=== PATIENT | female | born 1940 | race Caucasian/White ===

== ENCOUNTER 2017-02-17 16:30 | Inpatient (IN) | payer MEDICARE, OTHER ==
[2017-02-17] VITALS: BP 159/89
[~2017-02-17] VITALS: Ht 160 cm; Wt 59.1 kg
[2017-02-17 17:26] LABS: INR 0.91 (0.85-1.17); PROTIME 11.9 SECONDS (11.6-15.0)
[2017-02-17 17:28] LABS: ALBUMIN 3.8 g/dL (3.4-5.0); ALKALINE PHOSPHATASE 52 U/L (46-116); ALT (SGPT) 32 U/L (10-68); BILIRUBIN - TOTAL 0.53 mg/dL (0.2-1.3); CALC OSMOLALITY 277 mosm/kg (275-300); CALCIUM 10.3 mg/dL (8.5-10.1); CHLORIDE - SERUM 101 mmol/L (98-107); CREATININE - SERUM 0.7 mg/dL (0.6-1.3); D-DIMER-QUANTITATIVE 0.46 ug/mLFEU (0.20-0.54); GLUCOSE 100 mg/dL (74-106); POTASSIUM - SERUM 3.5 mmol/L (3.5-5.1); SODIUM 139 mmol/L (136-145); UREA NITROGEN 13 mg/dL (7-18); eGFR NON AFRICAN AMERICAN 86 mL/min (90-120)
[2017-02-17 17:34] LABS: BASOPHILS 0.5 % (0-2); EOSINOPHILS 3.7 % (0-7); HEMATOCRIT 43.2 % (36.0-48.0); HEMOGLOBIN 14.8 g/dL (12-16); IMMATURE GRANULOCYTES 0.2 % (0-5); LYMPHOCYTES 32.8 % (15-50); MCH 35.5 pg (26.0-34.0); MCHC 34.3 g/dL (31.0-37.0); MCV 103.6 fL (80.0-100.0); MEAN PLATELET VOLUME 10.1 fL (7.4-10.4); MONOCYTES 8.7 % (2-11); NEUTROPHILS 54.1 % (40-80); PLATELET COUNT 333 10x3/uL (130-400); RBC 4.17 10x6/uL (4.00-5.40); RDW 11.7 % (11.5-14.5); WBC 6.2 10x3/uL (4.8-10.8)
[2017-02-17 17:44] LABS: CKMB 0.7 U/L (0.0-3.6); CREATINE KINASE 51 UL (21-215)
[2017-02-17 17:48] LABS: TROPONIN-I < 0.017 ng/mL (0.000-0.060)
[2017-02-17 18:50] LABS: APPEARANCE CLEAR (CLEAR); COLOR YELLOW (YELLOW); NITRITE NEGATIVE (NEGATIVE); PROTEIN NEGATIVE (NEGATIVE)
[2017-02-17 18:51] LABS: BILIRUBIN NEGATIVE (NEGATIVE); GLUCOSE NEGATIVE (NEGATIVE); KETONE NEGATIVE (NEGATIVE); UROBILINOGEN NORMAL (NORMAL)
[2017-02-17 23:00] VITALS: BP 164/84; BMI 23.0
[2017-02-17 23:38] LABS: CKMB 0.6 U/L (0.0-3.6); CREATINE KINASE 63 UL (21-215)
[2017-02-17 23:41] LABS: TROPONIN-I < 0.017 ng/mL (0.000-0.060)
--- NOTE | 2017-02-18 | NUR ---
ADMIT TO ROOM 2119 FROM ER. ALERT/ORIENTED. ACCOMPANIED BY SPOUSE. AMBULATORY. PIV 20 IN LEFT A/C. NS @ 100ML/HR CURRENTLY INFUSING. ADMISSION HISTORY AND ASSESSMENT COMPLETED. NEED FURTHER EVAL OF HOME MEDS TOOK ALL MEDS HOME AND ER DID NOT MAKE A LIST OF THE MEDS. PT REPEATED THOSE THAT SHE COULD REMEMBER. WILL CLARIFY MEDS IN AM. TELEMETRY STARTED SHOWING SR 68. CALL LIGHIT IN REACH. PLAN OF CARE AND EXPECTED INTERVENTIONS EXPLAINED. WILL MONITOR.
[2017-02-18] MEDS ORDERED: VALIUM5 MG PO (03:26)
[2017-02-18] MEDS ORDERED: BETAPACE 80 MG80 MG PO (03:27)
[2017-02-18] MEDS ORDERED: CELEXA20 MG PO (03:30)
[2017-02-18] MEDS ORDERED: VALTREX500 MG PO (03:31)
[2017-02-18] MEDS ORDERED: BELSOMRA20 MG PO (03:32)
[2017-02-18] MEDS ORDERED: DIOVAN40 MG PO (03:38)
[2017-02-18] MEDS ORDERED: MAXALT MLT10 MG/TAB PO (03:58)
[2017-02-18] MEDS ORDERED: DESERYL100 MG PO (03:59)
[2017-02-18] MEDS ORDERED: DETROL LA4 MG PO (04:00)
[2017-02-18 05:15] LABS: BASOPHILS 0.5 % (0-2); EOSINOPHILS 5.1 % (0-7); HEMOGLOBIN 14.4 g/dL (12-16); IMMATURE GRANULOCYTES 0.2 % (0-5); LYMPHOCYTES 32.2 % (15-50); MCH 35.6 pg (26.0-34.0); MCHC 34.3 g/dL (31.0-37.0); MONOCYTES 9.5 % (2-11); NEUTROPHILS 52.5 % (40-80); PLATELET COUNT 297 10x3/uL (130-400); RBC 4.04 10x6/uL (4.00-5.40); RDW 11.9 % (11.5-14.5); WBC 5.5 10x3/uL (4.8-10.8)
--- NOTE | 2017-02-18 05:15 | NUR ---
CALLED TO PATIENT'S ROOM WHERE SHE WAS EXPERIENCING ABDOMINAL PAIN / THAT WAS "HEADING" UP TOWARDS HER CHEST. HER ABDOMINAL SOUNDS ARE HIGH PITCHED AND VERY LOUD AND RUMBLING.SHE IS CLUTCHING HER ABDOMEN AND SAYING MAYBE IT WOULD HELP IF SHE WENT TO THE BATHROOM. ASSISTED PT TO TOILET WHERE SHE VOIDED, BUT DID NOT HAVE ANY BM. SMALL AMOUNT FLATUS NOTED. ASSISTED BACK TO BED AND PT IN TEARS ABOUT HOW MUCH SHE WAS HURTING AND NAUSEATED.
[2017-02-18 05:48] LABS: CALC OSMOLALITY 278 mosm/kg (275-300); CALCIUM 8.9 mg/dL (8.5-10.1); CARBON DIOXIDE 29.6 mmol/L (21.0-32.0); CHLORIDE - SERUM 103 mmol/L (98-107); CKMB 0.4 U/L (0.0-3.6); CREATINE KINASE 38 UL (21-215); CREATININE - SERUM 0.6 mg/dL (0.6-1.3); GLUCOSE 96 mg/dL (74-106); POTASSIUM - SERUM 3.4 mmol/L (3.5-5.1); SODIUM 140 mmol/L (136-145); TROPONIN-I < 0.017 ng/mL (0.000-0.060); UREA NITROGEN 13 mg/dL (7-18); eGFR NON AFRICAN AMERICAN > 90 mL/min (90-120)
--- NOTE | 2017-02-18 05:48 | NUR ---
PAGE TO DANIELLA HERNANDEZ TO REPORT PAIN/NAUSEA.
[2017-02-18 06:16] VITALS: BP 159/80
--- NOTE | 2017-02-18 06:38 | NUR ---
0600 RETURN CALL FROM DANIELLA. REVIEWED PT'S CURRENT ISSUES OF PAIN/NAUSEA AND AVAILABLE LAB RESULTS. NEW ORDERS RECIEVED. PENDING CT'S OF ABDOMEN/PELVIS/CHEST DEPENDING ON PATIENT'S BUN/CREATININE LEVEL. MEDICATED PATIENT WITH ZOFRAN IVP AND MORPHINE 4MG SIVP. IVF NS @ 50 INFUSING TO LEFT A/C. PT INSTRUCTION ON NEW ORDERS FOR CT SCANS. AFTER A FEW MINUTES, PT WAS ABLE TO FEEL SOME RELIEF FROM THE MORPHINE. STILL FEELING NAUSEATTED. WILL MONITOR. REPORT TO ONCOMING RN.
[2017-02-18 07:41] VITALS: BP 130/66
--- NOTE | 2017-02-18 09:28 | NUR ---
TELEMETRY SR. LEAVING FOR X-RAY BY W/C FOR CT SCAN.
--- NOTE | 2017-02-18 09:58 | NUR ---
BACK FROM CT. DIET RESUMED.
[2017-02-18 10:38] LABS: CKMB 0.5 U/L (0.0-3.6); CREATINE KINASE 46 UL (21-215); TROPONIN-I < 0.017 ng/mL (0.000-0.060)
[2017-02-18 11:19] VITALS: BP 162/81
--- NOTE | 2017-02-18 11:58 | NUR ---
ACCREDITED LEGAL SECRETARY NOTIFIED OF C/O BARTON. WILL MONITOR.
[2017-02-18 12:23] VITALS: Ht 160 cm; Wt 59.1 kg
[2017-02-18 15:45] VITALS: BP 143/70
--- NOTE | 2017-02-18 19:42 | NUR ---
PT AWAKE, ALERT, ORIENTED, LYING IN BED, ASKING FOR SALTINE CRACKERS FOR NAUSEA. PT STATES SHE IS UNABLE TO EAT MUCH AT THIS TIME. PT DENIES ANY OTHER NEEDS. WILL CONTINUE TO MONITOR PT CLOSELY.
[2017-02-18 20:23] VITALS: BP 166/67
--- NOTE | 2017-02-18 20:23 | NUR ---
PT STATES HER NAUSEA IS BETTER AFTER EATING SALTINES AND DRINKING A [place]. PT DENIES ANY NEEDS. WILL CONTINUE TO MONITOR CLOSELY.
[2017-02-19 01:50] VITALS: BP 141/74
--- NOTE | 2017-02-19 02:15 | NUR ---
RECEIVED PT FROM ROOM 2119 VIA WC, PT TO ROOM 1219, PT TO BR, GAIT STEADY, VOIDED BY SELF WITH NO DIFFICULTY, PT TO BED, PT DENIES PAIN, PT REQUESTED AND SERVED FRESH H20, DENIES FURTHER NEEDS, PT ORIENTED TO ROOM, BED IN LOW POSITON, SIDE RAILS X 2, CALL LIGHT IN REACH
--- NOTE | 2017-02-19 02:31 | NUR ---
PT TRANSFERRED TO 1219 R/T THE UNIT NEEDING THE ROOM FOR ANOTHER PT. PRN MORPHINE GIVEN R/T INCREASED MIDSTERNAL CHEST PAIN AND PRN ZOFRAN GIVEN PER PT REQUEST. ALL OF PTS PERSONAL BELONGINGS COLLECTED AND TRANSFERRED WITH PT VIA WHEELCHAIR.
[2017-02-19 03:35] VITALS: BP 153/72
--- NOTE | 2017-02-19 03:35 | NUR ---
PT UP TO BR, GAIT STEADY, VOIDED BY SELF WITH NO DIFFICULTY, PT BACK TO BED, DENIES NEEDS OR PAIN AT THIS TIME
--- NOTE | 2017-02-19 04:30 | NUR ---
PT RESTING WITH EYES CLOSED, RESP QUIET, NO DISTRESS NOTED, LEFT UNDISTURBED AT THIS TIME
--- NOTE | 2017-02-19 05:40 | NUR ---
LAB TO ROOM FOR AM BLOOD DRAW
--- NOTE | 2017-02-19 05:45 | NUR ---
PT DIRECTOR SURFACE TRANSPORTATION LIGHT, PT UP TO BR WITH ASSISTANCE, GAIT STEADY, PT TO COMMODE, PT STATES "I'M GOING TO SIT HERE FOR A FEW MINUTES", PT INST TO USE CALL LIGHT WHEN FINISHED AND FOR ANY ASSISTANCE, PT VERBALIZES UNDERSTANDING
--- NOTE | 2017-02-19 05:50 | NUR ---
PT ROOF SLATER LIGHT, VOIDED BY SELF WITH NO DIFFICULTY, PT BACK TO BED, PT C/O BARTON, REQUESTS A MAXALT, INFORMED PT THAT PHARMACY WILL BE IN AT 6AM AND I WILL CALL THEM AT THAT TIME TO BRING IT TO ME, PT VERBALIZES UNDERSTANDING, DENIES FURTHER NEEDS
[2017-02-19 06:00] LABS: BASOPHILS 0.3 % (0-2); EOSINOPHILS 2.6 % (0-7); HEMATOCRIT 40.7 % (36.0-48.0); HEMOGLOBIN 13.7 g/dL (12-16); IMMATURE GRANULOCYTES 0.2 % (0-5); LYMPHOCYTES 25.2 % (15-50); MCH 35.2 pg (26.0-34.0); MCHC 33.7 g/dL (31.0-37.0); MCV 104.6 fL (80.0-100.0); MEAN PLATELET VOLUME 9.7 fL (7.4-10.4); MONOCYTES 10.8 % (2-11); NEUTROPHILS 60.9 % (40-80); PLATELET COUNT 285 10x3/uL (130-400); RBC 3.89 10x6/uL (4.00-5.40); RDW 11.8 % (11.5-14.5); WBC 6.2 10x3/uL (4.8-10.8)
--- NOTE | 2017-02-19 06:03 | NUR ---
PHARMACY NOTIFIED FOR POLLOFLT
[2017-02-19 06:13] LABS: INR 0.95 (0.85-1.17); PROTIME 12.3 SECONDS (11.6-15.0)
[2017-02-19 06:19] LABS: ALBUMIN 3.2 g/dL (3.4-5.0); ALKALINE PHOSPHATASE 45 U/L (46-116); ALT (SGPT) 26 U/L (10-68); CALC OSMOLALITY 272 mosm/kg (275-300); CALCIUM 8.4 mg/dL (8.5-10.1); CARBON DIOXIDE 29.8 mmol/L (21.0-32.0); CHLORIDE - SERUM 105 mmol/L (98-107); CREATININE - SERUM 0.6 mg/dL (0.6-1.3); GLUCOSE 106 mg/dL (74-106); POTASSIUM - SERUM 3.6 mmol/L (3.5-5.1); PROTEIN - SERUM 5.8 g/dL (6.4-8.2); SODIUM 137 mmol/L (136-145); UREA NITROGEN 10 mg/dL (7-18); eGFR NON AFRICAN AMERICAN > 90 mL/min (90-120)
--- NOTE | 2017-02-19 06:51 | NUR ---
ADM MAXALT AND PROTONIX PO PER MD ORDERS, SEE EMAR, PT DENIES FURTHER NEEDS
--- NOTE | 2017-02-19 07:00 | NUR ---
SHIFT REPORT TO DAY SHIFT
[2017-02-19 07:25] VITALS: BP 180/78
--- NOTE | 2017-02-19 07:25 | NUR ---
RCVD PT FROM Kobe MICHAEL RN. PT SITTING UP IN BED WITH MEAL TRAY SERVED. PT REPORTS PAIN LEVEL 6-7/10 IN ABD AT THIS TIME. HR-RRR, PPP, PIV NOTED TO LT AC WITH NS INFUSING AT 50 ML/HR. NO EDEMA OR ERTHEMA NOTED TO SITE. BP NOTED TO BE 180/78. PT REPORTS NOT HAVING BP MEDS SINCE ADMIT. WILL MONITOR. BS ACTIVE X4. NO EDEMA NOTED TO BLE. PT DENIES FURTHER NEEDS AT THIS TIME. BED LOW, WHEELS LOCKED, CL IN REACH, SIDE RAILS UP X2.
--- NOTE | 2017-02-19 08:30 | NUR ---
PT RINGS CL WITH REPORT THAT HER PAIN IS GONE AND NO NEED FOR MEDICATION. RN TO BS FOR REPEAT BP CHECK WITH 187/87 RESULTING. PHARMACY CALLED TO BRING 0.1MG CLONIDINE AT THIS TIME.
--- NOTE | 2017-02-19 08:42 | NUR ---
CLONIDINE 0.1 MG GIVEN FOR BP OF 187/87 WITH SMALL SIP OF WATER AT THIS TIME. PT DENIES PAIN OR FURTHER NEEDS.
--- NOTE | 2017-02-19 09:57 | NUR ---
CURRENT NS INFUSION COMPLETE. OLD BAG DOWN, NEW BAG UP TO PRESENT TUBING. MD IN ROOM ASSESSING PT AT THIS TIME. PT VERBALIZING PAIN LEVEL 3/10 IN UPPER ABD. PT REQUESTS PAIN MEDICATION.
--- NOTE | 2017-02-19 10:04 | NUR ---
MORPHINE AND ZOFRAN GIVEN SIVP PER ORDERS. SEE EMAR. PT DENIES FURTHER NEEDS AT THIS TIME AND STATES "I'M JUST GOING TO REST FOR NOW." WILL CONT TO MONITOR.
--- NOTE | 2017-02-19 10:35 | NUR ---
PAIN REASSESSMENT COMPLETE. PT DENIES PAIN AT THIS TIME AND IS RESTING. DENIES FURTHER NEEDS.
--- NOTE | 2017-02-19 11:42 | NUR ---
PT LYING ON BACK IN BED WITH TABLET IN LAP. DENIES PAIN OR NEEDS AT THIS TIME. WILL CONT TO MONITOR.
[2017-02-19 12:47] VITALS: BP 153/67
--- NOTE | 2017-02-19 12:47 | NUR ---
PT AAOX3 LYING ON BACK WITH TABLET IN LAP. VSS. PT DENIES PAIN OR NEEDS.
--- NOTE | 2017-02-19 13:58 | NUR ---
PT RINGS CL. RN TO BEDSIDE. PT REPORTS PAIN 9/10 AND REQUESTS PAIN MEDICATION. WILL RETURN WITH SAME.
--- NOTE | 2017-02-19 14:05 | NUR ---
MORPHINE AND ZOFRAN GIVEN SIVP PER ORDERS FOR PAIN RATED 9/10 IN ABD AT THIS TIME. PT DENIES FURTHER NEEDS. FAMILY AT BEDSIDE FOR SUPPORT.
--- NOTE | 2017-02-19 14:38 | NUR ---
PAIN REASSESSMENT COMPLETE. PT RATES PAIN 0/10 AND DENIES FURTHER NEEDS. FAMILY REMAINS AT BEDSIDE AT THIS TIME.
--- NOTE | 2017-02-19 15:28 | NUR ---
PT LYING ON BACK WITH HOB 20 DEGREES RESTING WITH EYES CLOSED. PT AWAKENS WITH LIGHT VERBAL STIMULI. PT AND S.O. NOTIFIED THAT GI LAB WILL BE HERE AT 1600 TO TAKE HER TO GI LAB. PT VERBALIZES UNDERSTANDING AND INQUIRES IF THEY WILL HAVE A W/C. ADV PT IT WILL EITHER BE W/C OR BED. PT STATES "THAT'S GOOD BECAUSE I'M SO SLEEPY." PT DENIES FURTHER NEEDS AT THIS TIME.
--- NOTE | 2017-02-19 15:40 | NUR ---
REGLAN GIVEN PER ORDERS PRE-OP MED. PT DENIES FURTHER NEEDS AT THIS TIME. AWAITING PHARMACY TO BRING PEPCID IV.
--- NOTE | 2017-02-19 16:20 | NUR ---
PT OFF UNIT WITH GI STAFF AT THIS TIME.
--- NOTE | 2017-02-19 18:02 | NUR ---
PT RCVD BACK FROM GI LAB AND IN NO APPARENT DISTRESS. MEAL TRAY SERVED REGULAR DIET PER ORDERS. PT REPORTS SHE'S SUPPOSED TO GO FOR A UPPER GI IN THE AM. ADV PT WILL CHECK ORDERS. PT DENIES PAIN OR NEEDS AT THIS TIME.
[2017-02-19 19:20] VITALS: BP 142/70
--- NOTE | 2017-02-19 19:20 | NUR ---
AWAKE DURING INITIAL ROUNDS. INTRODUCED SELF. V/S TAKEN. ASSESSMENT DONE. STATUS GI ULCERS POST EGD TODAY. WITH IVF--NS TO L AC @ 100cc/hr. IV SITE OK. FOR UPPER GI SERIES IN AM. PT INSTRUCTED--NPO AFTER MIDNIGHT. VERBALIZED UNDERSTANDING.
--- NOTE | 2017-02-19 19:44 | NUR ---
CARAFATE /PROTONIX MEDICATION GIVEN. SEE E-MAR.
--- NOTE | 2017-02-19 22:02 | NUR ---
PAIN LEVEL 4/10 FROM UPPER ABD. MORPHINE 4 mg IV GIVEN. SEE E-MAR
[2017-02-19 22:39] VITALS: BP 145/72
--- NOTE | 2017-02-19 22:39 | NUR ---
V/S STABLE. PAIN LEVEL 0/10
--- NOTE | 2017-02-20 00:30 | NUR ---
EYES CLOSED. LEFT UNDISTURBED.
--- NOTE | 2017-02-20 02:05 | NUR ---
SLEEPING. RESPIRATIONS EASY.
--- NOTE | 2017-02-20 04:30 | NUR ---
APPEARS TO BE ASLEEP. REMAINS NPO AFTER MIDNIGHT.
--- NOTE | 2017-02-20 06:24 | NUR ---
SLEPT FAIRLY WELL DURING THE NIGHT. CONTINUING PLAN OF CARE. REMAINED NPO AFTER MIDNIGHT FOR UPPER GI TODAY.
[2017-02-20 07:30] VITALS: BP 164/72
--- NOTE | 2017-02-20 07:30 | NUR ---
RCVD PT FROM Gerardo ZARATE RN. PT LYING ON BACK, HOB 20 DEGREES. REPORTS PAIN IS 10/10 AND COMES AND GOES ABOUT EVERY 2 MINS. WILL RETURN WITH MEDICATION. HR-RRR, PPP, PIV NOTED TO LT AC WITH NS INFUSING AT 100ML/HR PER ORDERS. BOWEL SOUNDS ACTIVE X4 AND TENDERNESS IN LUQ NOTED ON PALPATION. NO EDEMA NOTED TO BLE. PT REPORTS VOIDING WITHOUT DIFFICULTY. PT IS NPO DUE TO SCHEDULED UPPER GI SERIES THIS AM. PT DENIES FURTHER NEEDS. BED LOW, WHEELS LOCKED, CL IN REACH, SIDE RAILS UP X2.
--- NOTE | 2017-02-20 07:32 | NUR ---
MORPHINE AND ZOFRAN GIVEN PER ORDERS. SEE EMAR. PT DENIES FURTHER NEEDS.
--- NOTE | 2017-02-20 08:08 | NUR ---
PAIN REASSESSMENT COMPLETE. PT DENIES PAIN OR FURTHER NEEDS.
--- NOTE | 2017-02-20 08:40 | NUR ---
NS INFUSION COMPLETE. OLD BAG DOWN. NEW BAG UP TO PRESENT TUBING. PT DENIES FURTHER NEEDS OR PAIN AT THIS TIME.
--- NOTE | 2017-02-20 09:17 | NUR ---
ROUNDS MADE. PT LYING ON BACK. HOB 20 DEGREES WITH SPOUSE IN ROOM. PT DENIES NEEDS AT THIS TIME.
--- NOTE | 2017-02-20 10:06 | NUR ---
PT OFF UNIT WITH XRAY FOR UPPER GI SERIES.
--- NOTE | 2017-02-20 10:18 | NUR ---
BED LINENS CHANGED AT THIS TIME. PT'S SPOUSE REMAINS IN ROOM AWAITING PT'S RETURN.
--- NOTE | 2017-02-20 10:42 | NUR ---
PT BACK TO ROOM VIA W/C PER XRAY STAFF.
--- NOTE | 2017-02-20 10:42 | NUR ---
Nutrition Follow Up: Pt is NPO today for upper GI. +BM 02/19/17. Labs reviewed. Meds noted including Zofran Reglan. Rec advancing RANDELL when medically feasible. RD following.
--- NOTE | 2017-02-20 10:50 | NUR ---
0600 SCHEDULED PROTONIX GIVEN LATE DUE TO NPO STATUS FOR UPPER GI SERIES. SIPS OF WATER PROVIDED. PT DENIES FURTHER NEEDS AT THIS TIME.
[2017-02-20 11:44] VITALS: BP 168/66
--- NOTE | 2017-02-20 11:46 | NUR ---
ROUNDS MADE. VSS. CARAFATE GIVEN PER ORDERS. SEE EMAR. DR JENKINS TO ROOM TO DISCUSS POC WITH PT TO INCLUDE POSSIBLE DC HOME TODAY. PT DENIES FURTHER NEEDS AT THIS TIME.
--- NOTE | 2017-02-20 12:36 | NUR ---
RUBA PARDO CL. REPORTS NO TISSUE PAPER IN BATHROOM. TISSUE PAPER PROVIDED. PT DENIES FURTHER NEEDS.
--- NOTE | 2017-02-20 12:59 | NUR ---
ALARIS ALARMING OCCLUDED. PIV ASSESSED. PATENT, NO SIGNS OF INFILTRATION. PUMP RESET. PT DENIES PAIN OR NEEDS.
[2017-02-20] MEDS ORDERED: PROTONIX40 MG PO ×3 (13:11→14:31)
[2017-02-20] MEDS ORDERED: CARAFATE1 G/10 ML PO ×3 (13:11→14:31)
[2017-02-20] MEDS ORDERED: ULTRAM50 MG PO ×3 (13:11→14:31)
--- NOTE | 2017-02-20 13:22 | NUR ---
PT RESTING ON BACK. DENIES PAIN OR NEEDS AT THIS TIME.
--- NOTE | 2017-02-20 14:12 | NUR ---
PT SITTING UP IN BED. QUESTIONS WHEN D/C WILL BE. ADV AWAITING MD RELEASE. PT VERBALIZED UNDERSTANDING AND DENIES FURTHER NEEDS.
--- NOTE | 2017-02-20 15:01 | NUR ---
D/C INST EXPLAINED, SIGNED, AND WITNESSED. PIV TO LT AC D/C'D WITH CATH TIP INTACT. PT VINEET. WELL. PT TAKEN OFF TELEMETRY. UP TO BATHROOM TO CHANGE INTO OWN CLOTHES AT THIS TIME.
--- NOTE | 2017-02-20 15:20 | NUR ---
PT OFF UNIT VIA W/C PER THIS RN.
--- NOTE | 2017-03-01 11:18 | EC ---
PATIENT:GINI TORRES DATE OF SERVICE: 02/19/17 SEX: F MEDICAL RECORD: [id number] DATE OF : 42 [facility] AGE OF PATIENT: 76 ADMISSION DATE: 02/19/17 REFERRING PHYSICIAN: INTERPRETING PHYSICIAN: JÚNIOR FIGUEROA MD ECHOCARDIOGRAM REPORT ECHO CHARGES 4 ECHO COMPLETE CLINICAL DIAGNOSIS: CHEST PAIN HX OF HTN ECHOCARDIOGRAPHIC MEASUREMENTS (adult normal given) AC root (d.<3.7cm) 3.5 cm LV Septum d (<1.2 cm> 1.5 cm Valve Excursion 1.8 cm LV Septum (systole) 2.1 cm Left Atria (s.<4.0cm> 3.1 cm LVPW d(<1.2cm) 1.6 cm RV (d.<2.3cm) 2.2 cm LVPW (sytole) 1.9 cm LV diastole(<5.6CM) 4.0 cm MV E-F(>70mm/sec) cm LV systole 2.7 cm LVOT Diameter 1.5 cm MV exc.(>10mm) 1.6 cm Est.ejection fraction (50-75%) % Pericardial Effusion N DOPPLER: LVIT cm/sec A 93.0 cm/sec E 75.0 cm/sec LA cm/sec RVSP 37 mmHg LVOT 87 cm/sec AOP1/2T m/s Asc. Ao 106 cm/sec RVOT 58 cm/sec RA cm/sec PA 86 cm/sec AV Gradient Peak 4.49 mmHg AV Mean 2.33 mmHg AV Area 1.6 cm MV Gradient Peak 6.02 mmHg MV Mean 2.27 mmHg MV Area cm COMMENTS: Resolution Specialist: Mary CABRERA Ordnance Mechanic: 4 Dr. Figueroa TAPE# PACS DATE OF SERVICE: 02/18/2017 PROCEDURE: Transthoracic echocardiogram. FINDINGS: 1. Left ventricular cavity shows moderate left ventricular hypertrophy concentric in nature with inflow characteristics consistent with diastolic dysfunction. Ejection fraction is 65% to 70%. 2. Left atrium appears to be normal size, normal function. 3. The aortic valve has mild thickening, otherwise normal without any evidence ECHOCARDIOGRAM REPORT [id number] GINI TORRES of stenosis or regurgitation. 4. The mitral valve is structurally normal. Not well visualized. 5. Tricuspid valve has mild tricuspid regurgitation. RVSP is mildly elevated at 30-35 mmHg. 6. The pericardium is normal. 7. Pulmonic valve is normal. 8. The right atrium is normal. 9. The right ventricle is normal. CONCLUSIONS: The patient has evidence of hypertensive heart disease, otherwise normal echocardiogram. TRANSINT:[id number] Voice Confirmation ID: [id number] DOCUMENT ID: [id number] 02/27/2017 Edited to correct date of service, dm. JÚNIOR FIGUEROA MD at 1118 CC: [id number] DICTATION DATE: 02/20/17 0741 TABLE TENDER: 02/20/17 1011 DIS IN 02/20/17 [facility] [address] [place] [address]
== END 2017-02-20 15:20 | disposition home or self-care (01) | DRG 384 ==
LOC: D.ER 16:30 → OBSVTIME 22:10 → D.M2 22:10 → D.WS 22:10
PROVIDERS: Family Medicine; Internal Medicine Gastroenterology; Nurse Practitioner Family; ADMIT Emergency Medicine
PROC: 0DB78ZX Excision of Stomach, Pylorus, Via Natural or Artificial Opening Endoscopic, Diagnostic (ICD-10-PCS; 2017-02-19)
PROC: 0DB58ZX Excision of Esophagus, Via Natural or Artificial Opening Endoscopic, Diagnostic (ICD-10-PCS; principal; 2017-02-19 16:30)
DX: K25.3 Acute gastric ulcer without hemorrhage or perforation (principal); K44.9 Diaphragmatic hernia without obstruction or gangrene; K29.00 Acute gastritis without bleeding; K21.9 Gastro-esophageal reflux disease without esophagitis; E78.5 Hyperlipidemia, unspecified; K58.9 Irritable bowel syndrome, unspecified; F41.8 Other specified anxiety disorders; I10 Essential (primary) hypertension; K22.8 Other specified diseases of esophagus; Z85.3 Personal history of malignant neoplasm of breast

== ENCOUNTER → 2019-01-12 10:36 | Outpatient (CLI) | payer MEDICARE, OTHER ==
[2017-02-18 12:23] VITALS: BMI 23.0
[~2019-01-12 10:36] MED LIST: BELSOMRA20 MG PO; BETAPACE 80 MG80 MG PO; CARAFATE1 G/10 ML PO; CELEXA20 MG PO; DESERYL100 MG PO; DETROL LA4 MG PO; DIOVAN40 MG PO; MAXALT MLT10 MG/TAB PO; PROTONIX40 MG PO; ULTRAM50 MG PO; VALIUM5 MG PO; VALTREX500 MG PO
== END | disposition home or self-care (01) ==
LOC: D.CT 10:36
PROVIDERS: ATTEND Internal Medicine Gastroenterology
DX: R19.7 Diarrhea, unspecified (principal)

== ENCOUNTER → 2019-11-16 12:46 | Outpatient (CLI) | payer MEDICARE, OTHER ==
[2017-02-18 12:23] VITALS: BMI 23.0
--- NOTE | ~2019-11-16 | HEMODYNAMI ---
PATIENT:GINI TORRES MEDICAL RECORD: [id number] : 42 LOCATION:[facility] ADMISSION DATE: 11/16/19 Generatedon:11/16/201914:28 Patient name: GINI TORRES Patient #: [id number] SSN: : 1940 Date of study: 11/16/2019 Page: Of Hemodynamic Procedure Report Patient Data Patient Demographics Procedure consent was obtained First Name: GINI Gender: Female Last Name: BRIAN : 1940 Middle Initial: D Age: 79 year(s) Patient #: [id number] Race: Unknown Additional ID: [id number] Contact details [address]: [address] [place] [address] State: [place] City: [place] Zip code: [address] Admission Admission Data Admission Date: 11/16/2019 Admission Time: 12:46 Procedure Procedure Types Cath Procedure Peripheral Cath Diagnostic Procedure Wind Commissioning Technician Peripheral Procedures Miscellaneous Aspiration/Injection (Joint) Procedure Description Procedure Date Procedure Date: 11/16/2019 Procedure Start Time: 14:19 Procedure Staff Name Function Ryne Gamino MD Performing Physician Daina Chávez RT Rn Medical Surgical Daryn Yeager RT Scrub Procedure Data Cath Procedure Fluoroscopy Diagnostic fluoroscopy Total fluoroscopy Time: 0.2 time: 0.2 min min Diagnostic fluoroscopy Total fluoroscopy dose: 1 dose: 1 mGy mGy Hemodynamics Rest Pre Cath Intra NCS Post Cath Procedure Log Time Note 14:04:15 SAFE-T PLUS MYELOGRAM TRAY opened to sterile field. 14:04:37 - 14:13:08 Daina Chávez RT(R) sent for patient. Start room use. 14:13:16 Time tracking: Regular hours (M-F 7:00 - 5:00) 14:13:22 Patient received from Other to CCL 1 Alert and oriented. Tansferred to table in Supine position. 14:13:30 Signed procedure consent form obtained from patient. 14:13:33 Full Disclosure recording started 14:13:35 Pre-procedure instructions explained to patient. 14:13:36 Pre-op teaching completed and patient verbalized understanding. 14:13:55 NO ALLERGIES 14:14:00 Is patient on blood thinner?No 14:14:12 Left Hip was prepped with chlora-prep and draped in sterile fashion. 14:18:54 Physician arrived 14:18:54 --------ALL STOP TIME OUT------ 14:18:56 Final Timeout: patient, procedure, and site verified with staff and physician. All members of the team are in agreement. 14:19:03 Left groin site verified by team. 14:19:10 Sedation plan: Local Anesthetic Medication:Lidocaine 14:19:25 Procedure started. 14:19:34 Local anesthetic to Left Hip with Lidocaine 1% by Ryne Gamino MD.INITIAL ACCESS ONLY 14:26:18 Procedure ended.(Physican Out) 14:26:23 Fluoroscopy time 00.20 minutes. 14:26:27 Fluoroscopy dose: 1 mGy 14:26:27 Flurop Dose total: 1 14:27:00 SITE LT.HIP STABLE BANDAIDE APPLIED PT SENT HOME Device Usage Item Name Manufacture Quantity Catalog Hospital Part Current Minimal Lot# / Number Charge Number Stock Stock Serial# Code SAFE-T CareFusion 1 [id number] PLUS MYELOGRAM TRAY Signature Audit Pinon Stage Time Signature Unsigned Intra-Procedure 11/16/2019 Daryn 2:27:56 PM Toy RT (R) (CV) [facility] [address] [place] [address]
== END | disposition home or self-care (01) ==
LOC: D.SP 12:46 → D.RAD 13:30
PROVIDERS: ATTEND Nurse Practitioner Family
DX: M16.12 Unilateral primary osteoarthritis, left hip (principal)

== ENCOUNTER 2019-11-24 15:54 | Inpatient (IN) | payer MEDICARE, OTHER ==
[~2019-11-24] VITALS: Ht 160 cm; Wt 63.5 kg
[~2019-11-24 15:54] MED LIST changes: -DESERYL100 MG PO; +TRAZODONE HCL150 MG PO
[2019-12-01 11:47] LABS: BASOPHILS 0.4 % (0-2); EOSINOPHILS 2.2 % (0-7); HEMATOCRIT 44.8 % (36.0-48.0); HEMOGLOBIN 15.2 g/dL (12-16); IMMATURE GRANULOCYTES 0.3 % (0-5); LYMPHOCYTES 31.1 % (15-50); MCH 35.5 pg (26.0-34.0); MCHC 33.9 g/dL (31.0-37.0); MCV 104.7 fL (80.0-100.0); MEAN PLATELET VOLUME 9.6 fL (7.4-10.4); MONOCYTES 9.8 % (2-11); NEUTROPHILS 56.2 % (40-80); PLATELET COUNT 272 10x3/uL (130-400); RBC 4.28 10x6/uL (4.00-5.40); RDW 12.1 % (11.5-14.5); WBC 7.1 10x3/uL (4.8-10.8)
[2019-12-01 11:58] LABS: ANION GAP 12.5 mmol/L (8-16); CALCIUM 9.5 mg/dL (8.5-10.1); CARBON DIOXIDE 25.4 mmol/L (21.0-32.0); CREATININE - SERUM 0.8 mg/dL (0.6-1.3); POTASSIUM - SERUM 3.9 mmol/L (3.5-5.1)
[2019-12-01 11:59] LABS: BILIRUBIN NEGATIVE (NEGATIVE); KETONE NEGATIVE (NEGATIVE); NITRITE NEGATIVE (NEGATIVE); UROBILINOGEN NORMAL mg/dL (< 2)
[2019-12-01 12:01] LABS: APTT 31.2 SECONDS (22.8-39.4); INR 0.93 (0.85-1.17); PROTIME 12.4 SECONDS (11.6-15.0)
[2019-12-01 12:02] LABS: BACTERIA FEW HPF (NONE SEEN); EPITHELIAL CELLS OCC /hpf (0-5); WHITE CELLS - URINE 0-5 HPF (0-4)
[2019-12-01] MEDS ORDERED: VALTREX500 MG PO (12:14)
[2019-12-01] MEDS ORDERED: MUPIROCIN22 GM TOPICAL (13:11)
[2019-12-07] VITALS (8 sets, daily range): BP systolic 132–151; BP diastolic 59–71; BMI 24.8
[2019-12-07] MEDS ORDERED: BACTRIM DS TAB1 EAC1 PO (08:21)
--- NOTE | 2019-12-07 11:29 | NUR ---
THROUGH TRAFFIC KEPT TO A MINIMUM. HIBACLENS AND ALCOHOL USED TO CLEAN BEFORE PREPPING. STERILE GOWNED AND GLOVED TO PREP WITH CHLORAPREP.
--- NOTE | 2019-12-07 13:25 | NUR ---
RECEIVED TO ROOM 1213 VIA BED FROM PACU. A/O X 3. AT BEDSIDE. DRESSING TO RIGHT HIP IS DRY AND INTACT. NO C/O AT THIS TIME. SKIN IS INTACT WITHOUT REDNESS EXCEPT INCISION TO RIGHT GROIN. DENIES NEEDS.
--- NOTE | 2019-12-07 18:49 | NUR ---
ATE ONLY 10% OF SUPPER. DENIES NEEDS. C/O COLD IN ROOM. WORK ORDER PLACED TO HAVE IT WORKED ON. EXTRA BLANKET PLACED ON BED. WILL MONITOR.
--- NOTE | 2019-12-07 20:00 | NUR ---
ALERT RESTING IN BED DENIES PAIN OR NEEDS AT THIS TIME, SEE SHIFT ASSESSMENT CALL LIGHT IN REACH
[2019-12-07 20:28] LABS: ALBUMIN 3.4 g/dL (3.4-5.0); BILIRUBIN - DIRECT 0.08 mg/dL (0.00-0.30); BILIRUBIN - INDIRECT 0.27 mg/dL (0.00-1.00); BILIRUBIN - TOTAL 0.35 mg/dL (0.2-1.3); PROTEIN - SERUM 6.8 g/dL (6.4-8.2)
[2019-12-08 04:00] VITALS: BP 131/59
[2019-12-08 07:27] LABS: BASOPHILS 0.1 % (0-2); EOSINOPHILS 0.5 % (0-7); HEMOGLOBIN 12.3 g/dL (12-16); IMMATURE GRANULOCYTES 0.1 % (0-5); LYMPHOCYTES 19.7 % (15-50); MCH 34.8 pg (26.0-34.0); MCHC 33.2 g/dL (31.0-37.0); MCV 104.8 fL (80.0-100.0); MEAN PLATELET VOLUME 9.5 fL (7.4-10.4); MONOCYTES 12.4 % (2-11); NEUTROPHILS 67.2 % (40-80); PLATELET COUNT 310 10x3/uL (130-400); RBC 3.53 10x6/uL (4.00-5.40); RDW 12.1 % (11.5-14.5); WBC 7.6 10x3/uL (4.8-10.8)
[2019-12-08 07:44] LABS: ALBUMIN 2.9 g/dL (3.4-5.0); ALKALINE PHOSPHATASE 50 U/L (30-120); ALT (SGPT) 21 U/L (10-68); BILIRUBIN - TOTAL 0.44 mg/dL (0.2-1.3); CALC OSMOLALITY 275 mosm/kg (275-300); CALCIUM 8.3 mg/dL (8.5-10.1); CARBON DIOXIDE 29.3 mmol/L (21.0-32.0); CHLORIDE - SERUM 104 mmol/L (98-107); CREATININE - SERUM 0.6 mg/dL (0.6-1.3); GLUCOSE 101 mg/dL (74-106); PROTEIN - SERUM 5.6 g/dL (6.4-8.2); SODIUM 139 mmol/L (136-145); UREA NITROGEN 8 mg/dL (7-18); eGFR NON AFRICAN AMERICAN > 90 mL/min (90-120)
--- NOTE | 2019-12-08 07:45 | NUR ---
PT IS RESTING IN BED WITH EYES CLOSED. RESPIRATIONS ARE EVEN AND UNLABORED. PT IS EASILY AROUSED WITH VERBAL STIMULATION. PT IS AAO X 4 UPON AROUSAL. PT DENIES PRESENCE OF N/V/DYSPNEA/DIZZINESS AT THIS TIME. DRESSING TO LEFT HIP IS NOTED AND CDI. PT DENIES PRESENCE OF NUMBNESS/TINGLING. BLE SCDS ARE ON AND WORKING. INCENTIVE SPIROMETER IS AT BEDSIDE AND ENCOURAGED. PT GIVES APPROPRIATE RETURN DEMONSTRATION FOR IS AND VERBALIZES UNDERSTANDING. PIV TO RIGHT FA IS SL AND FLUSHES WITHOUT DIFFICULTY AND IS WITHOUT COMPROMISE AT THIS TIME. O2 VIA NC @ 2L. PT IS RESERVE LEFT ARM. SIGNS PLACED PER POLICY. FALL PRECAUTIONS IN PLACE. BED IS IN THE LOWEST POSITION. CALL LIGHT AND BEDSIDE TABLE ARE WITHIN REACH. SIDE RAILS X 2. PT DENIES FURTHER NEEDS. WILL CONT TO MONITOR.
[2019-12-08 08:07] VITALS: BP 127/52
--- NOTE | 2019-12-08 08:42 | OP ---
PATIENT NAME: GINI TORRES MEDICAL RECORD: [id number] :42 LOCATION:D. D.1213 ADMISSION DATE:12/07/19 SURGEON: CHEVY KC DO DATE OF OPERATION: 12/07/2019 PROCEDURE PERFORMED: Left total hip arthroplasty. PREOPERATIVE DIAGNOSIS: Left hip osteoarthritis. POSTOPERATIVE DIAGNOSIS: Left hip osteoarthritis. INDICATIONS: Ms. Torres is a 79-year-old female who has had left hip pain for quite some time, although on x-ray, it did not show extremely severe osteoarthritis. On MRI, she had a large, which was noted on x-ray, subchondral cyst in the femoral head that was quite painful. She also incidentally has had a partial gluteus medius tear, but she does not have pain on the lateral hip. It is more in the groin. I told her we could do that cyst. It was probably causing most of the pain and the arthritis is probably more severe than the x-ray showed and in fact that cyst was causing most of the pain as it was in the groin she said. I informed her of the risks of this procedure including infection, bleeding, damage to nerves or vessels in the area including the lateral femoral cutaneous nerve of the lateral thigh having numbness, blood clots, need for further surgery, fracture, loosening, failure of implants, and continued pain and even and she signed the consent. SURGEON: Chevy Kc DO. DESCRIPTION OF PROCEDURE: The patient was taken to the operative suite, laid in supine position, given general anesthetic, and intubated. She was given a gram of vancomycin and 2 grams of Ancef preoperatively due to her positive swab of MRSA even though she had been treated. The patient was moved over to the [place] table where she was given a gram of TXA. The left hip was then prepped and draped in sterile fashion. Time-out was performed and everyone was in agreement as to the correct side, site, patient, and procedure. I then began by making an incision over the tensor fascia darien muscle. I made careful dissection down to the muscle, took the fascia of the muscle anterior, the muscle belly posteriorly, and opened up the rectus interval. I then took the rectus medially and the tensor fascia darien laterally and opened up the capsule. I exposed the capsule, also the ascending branch of lateral femoral circumflex artery, tied it off, and then coagulated with the Aquamantys. I then exposed the capsule and opened it up and then tagged it and I put Hohmann's around the neck of the femur, cut the femur, removed the head of the femur and then the labrum as well as the pulvinar and the hip. I then reamed up to a 48 cup. I then impacted [address], checked it to make sure it was very solidly fixed and it was with Al. I then put in the liner, impacted it into place and it was all the way down on x-ray and visually as well. I then exposed the femur. I used a canal finder and [employer] cutter. I then started broaching with a 4, went to 5, 6, and 7. The 7 fit very tightly. I then put in a -3 neck and reduced the hip. It was very close to equal length just to the right side. I think a standard would have been too long as this is the closest to get the lengths as far as equal lengths and this was measured on the x-ray of the AP pelvis off of the lesser trochanter and across the ischial tuberosities. Once that was measured and seen to be very close to the same length, I dislocated the hip and removed the trials, irrigated and then put in a 7 stem, let it sit slightly proud to give us a little more length. I used a -3 neck and head, impacted it on, and OPERATIVE REPORT [id number] BRIANGINI Kashif reduced the hip. I then put in the 10% povidone-iodine with 500 mL saline solution and the x-rays were taken. There were no fractures in the femur and the leg lengths were equal on AP pelvis. I then after 3 minutes irrigated out the Betadine with normal saline with further a liter of it. I then put in Jose Maria, vancomycin and tobramycin powder. Christopher Jenkins, certified personal banking assistant, then closed the fascia of the tensor fascia darien with #1 Vicryl, first in a [id number] and then a running locking stitch and then he closed the skin with 2-0 Vicryl in inverted interrupted fashion, 4-0 Monocryl around the skin and placed Prineo glue, Telfa, and Tegaderm on the skin. She was awakened and taken to recovery in stable condition. BLOOD LOSS: Approximately 200 mL. COMPLICATIONS: None. NTS:[id number] Voice Confirmation ID: [id number] DOCUMENT ID: [id number] CHEVY KC DO at 0842 CC: [id number] DICTATION DATE: 12/07/19 1215 BRAZER REPAIR AND SALVAGE: 12/07/19 2319 ADM IN [place] [id number] [place] [address]
--- NOTE | 2019-12-08 10:00 | NUR ---
PT ASSISTED TO RESTROOM WITH WALKER AND MINIMAL ASSIST. PT WITH LARGE AMOUNT OF CLEAR YELLOW URINE VOIDED. PT DENIES PRESENCE OF DYSURIA AT THIS TIME. PT ASSISTED BACK TO BED. FALL PRECAUTIONS IN PLACE. INCENTIVE SPIROMETER WITHIN REACH AND ENCOURAGED. BED IS IN THE LOWEST POSITION. CALL LIGHT AND BEDSIDE TABLE ARE WITHIN REACH. SIDE RAILS X 2. PT DENIES FURTHER NEEDS. WILL CONT TO MONITOR.
[2019-12-08 11:03] VITALS: Ht 160 cm; Wt 63.5 kg
[2019-12-08 11:39] VITALS: BP 121/59
--- NOTE | 2019-12-08 11:48 | NUR ---
PT RESTING COMFORTABLY IN BEDSIDE CHAIR. FALL PRECAUTIONS IN PLACE. PT DENIES PRESENCE OF PAIN/N/V/DYSPNEA AT THIS TIME. INCENTIVE SPIROMETER ENCOURAGED AND WITHIN REACH. CALL LIGHT AND BEDSIDE TABLE ARE WITHIN REACH. PT DENIES FURTHER NEEDS. WILL CONT TO MONITOR.
[2019-12-08 16:34] VITALS: BP 129/60
--- NOTE | 2019-12-08 17:28 | NUR ---
PT ASSISTED TO RESTROOM WITH WALKER AND MINIMCAL ASSIST. PT WITH SMALL BM. PT DENIES PAIN WITH DEFECATION. PT ASSISTED BACK TO BED PER PT REQUEST. SCDS ON BLE. FALL PRECAUTIONS IN PLACE. INCENTIVE SPIROMETER AT BEDSIDE. BED IS IN THE LOWEST POSITION. CALL LIGHT AND BEDSIDE TABLE ARE WITHIN REACH. SIDE RAILS X 2. PT DENIES FURTHER NEEDS. WILL CONT TO MONITOR.
--- NOTE | 2019-12-08 18:49 | MORECARE ---
CASE MANAGEMENT DISCHARGE SUMMARY PATIENT: GINI TORRES UNIT: [id number] ADM DATE: 12/07/19 AGE: 79 : 41 SEX: F ROOM/BED: D.1213 AUTHOR: CLAUDIA IQBAL PHYSICIAN: REFERRING PHYSICIAN: JUVENAL KC DO DATE OF SERVICE: 12/08/19 Discharge Plan Patient Name: GINI TORRES Facility: [facility]:[place] : 1940 Planned Disposition: Outpatient PT\OT Anticipated Discharge Date: 12/09/19 Discharge Date: Expected LOS: 2 Initial Reviewer: [email or web address] Initial Review Date: 12/07/2019 Generated: 12/08/19 7:48 pm Comments DCP- Discharge Planning Updated by [email or web address]: Isabela Ozuna on 12/08/19 5:[address] CM met with patient for DC planning. Patient is in agreement to same. PCP: Dr. Yancey. Pharmacy: [facility]. DME: raised toilet seat, BSC, built in shower bench, rollator walker. An upright walker is to be delivered to patient prior to DC. Denies having any stairs upon entry. Emergency contact: Quang Torres (spouse) [phone]. Patient's phone # [phone]. CM discussed HHS, OP Therapy, SNF, Rehab. Patient would like to use [facility], [address] [facility] [phone]. CM will arrange therapy 12/08. Patient voices no other needs at this time. Coverage Notice Reviewer: [id number] - Isabela Ozuna Notice Issued Date-Time: 12/08/2019 18:47 Notice Type: Patient Choice Letter Notice Delivered To: Patient Relationship to Patient: Self Spanish Instructor Name: Gini Torres Delivery Method: HAND - Hand Delivered Miguelina Days: Prior Verbal Notification: Recipient Understood Notice: Yes Recipient Signature: Yes Med Rec Note Co-signed by Attending: Coverage Notice Comment: [facility] #[phone] Patient Name: GINI TORRES Page 22492 at 1849 All edits/amendments must be made on the electronic document DICTATION DATE: 12/08/191847 ACCOUNTS RECEIVABLE PROCESSOR: JEAN 12/08/191847 RPT#: [id number] DC DATE: STATUS: ADM IN [facility] [address] [place] [address] END OF REPORT
--- NOTE | 2019-12-08 19:15 | NUR ---
BEDSIDE SHIFT REPORT RECIEVED. PT SITTING UP IN BED WATCHING TV. CL IN REACH. PT DENIES NEEDS AT THIS TIME. LEFT HIP DRESSING INTACT WITH MODERATE DRAINAGE. A/O X4. RESP EVEN AND UNLABORED. BOWEL ACTIVE X4. 2L OF O2 ON VIA NC. SCD IN PLACE. WILL CONTINUE TO MONITOR.
[2019-12-08 19:31] VITALS: BP 125/54
[2019-12-09 04:35] VITALS: BP 120/62
--- NOTE | 2019-12-09 04:45 | NUR ---
I have reviewed this patient and I concur with the Shift Assessment completed by the Licensed Practical Nurse today this shift.
--- NOTE | 2019-12-09 05:50 | NUR ---
ASSISTED TO AND FROM BATHROOM VIA WALKER. PT BACK IN BED. SCDS IN PLACE. CL IN REACH. DENIES FURTHER NEEDS. WCTM
[2019-12-09 07:21] LABS: BASOPHILS 0.2 % (0-2); EOSINOPHILS 2.4 % (0-7); HEMATOCRIT 34.6 % (36.0-48.0); HEMOGLOBIN 11.4 g/dL (12-16); IMMATURE GRANULOCYTES 0.2 % (0-5); LYMPHOCYTES 27.8 % (15-50); MCHC 32.9 g/dL (31.0-37.0); MCV 106.1 fL (80.0-100.0); MEAN PLATELET VOLUME 9.4 fL (7.4-10.4); MONOCYTES 14.4 % (2-11); PLATELET COUNT 277 10x3/uL (130-400); RBC 3.26 10x6/uL (4.00-5.40); RDW 12.2 % (11.5-14.5); WBC 6.5 10x3/uL (4.8-10.8)
[2019-12-09 07:27] LABS: ALBUMIN 2.6 g/dL (3.4-5.0); ALKALINE PHOSPHATASE 52 U/L (30-120); ALT (SGPT) 14 U/L (10-68); BILIRUBIN - TOTAL 0.19 mg/dL (0.2-1.3); CALC OSMOLALITY 280 mosm/kg (275-300); CALCIUM 8.3 mg/dL (8.5-10.1); CARBON DIOXIDE 32.4 mmol/L (21.0-32.0); CHLORIDE - SERUM 105 mmol/L (98-107); CREATININE - SERUM 0.7 mg/dL (0.6-1.3); GLUCOSE 107 mg/dL (74-106); POTASSIUM - SERUM 3.8 mmol/L (3.5-5.1); PROTEIN - SERUM 5.7 g/dL (6.4-8.2); SODIUM 141 mmol/L (136-145); UREA NITROGEN 13 mg/dL (7-18); eGFR NON AFRICAN AMERICAN 86 mL/min (90-120)
[2019-12-09] MEDS ORDERED: ELIQUIS2.5 MG PO (07:41)
[2019-12-09] MEDS ORDERED: KEFLEX500 MG PO (07:42)
[2019-12-09] MEDS ORDERED: ZOFRAN ODT4 MG/UDTAB PO (07:42)
[2019-12-09] MEDS ORDERED: HYDROCODON-ACE1 EA10 PO (07:42)
[2019-12-09 08:38] VITALS: BP 136/73
--- NOTE | 2019-12-09 09:27 | MORECARE ---
CASE MANAGEMENT DISCHARGE SUMMARY PATIENT: GINI TORRES UNIT: [id number] ADM DATE: 12/07/19 AGE: 79 : 41 SEX: F ROOM/BED: D.1213 AUTHOR: CLAUDIA IQBAL PHYSICIAN: REFERRING PHYSICIAN: JUVENAL KC DO DATE OF SERVICE: 12/09/19 Discharge Plan Patient Name: GINI TORRES Facility: [facility]:[place] : 1940 Planned Disposition: Outpatient PT\OT Anticipated Discharge Date: 12/09/19 Discharge Date: Expected LOS: 2 Initial Reviewer: [email or web address] Initial Review Date: 12/07/2019 Generated: 12/09/19 10:26 am Comments DCP- Discharge Planning Updated by [id number]: Isabela Ozuna on 12/08/19 5:[address] CM met with patient for DC planning. Patient is in agreement to same. PCP: Dr. Yancey. Pharmacy: [facility]. DME: raised toilet seat, BSC, built in shower bench, rollator walker. An upright walker is to be delivered to patient prior to DC. Denies having any stairs upon entry. Emergency contact: Quang Torres (spouse) [phone]. Patient's phone # [phone]. CM discussed HHS, OP Therapy, SNF, Rehab. [facility] would like to use [facility], [address] [facility] [phone]. CM will arrange therapy 12/08. Patient voices no other needs at this time. External Providers External Provider: [facility] Next Contact Date: Service Request Date: Service Type: Resolution: Reviewer: Comments: Coverage Notice Reviewer: [id number] - Isabela Ozuna Notice Issued Date-Time: 12/08/2019 18:47 Notice Type: Patient Choice Letter Notice Delivered To: Patient Relationship to Patient: Self Billet Shearer Name: Gini Torres Delivery Method: HAND - Hand Delivered Miguelina Days: Prior Verbal Notification: Recipient Understood Notice: Yes Recipient Signature: Yes Med Rec Note Co-signed by Attending: Coverage Notice Comment: [facility] #[phone] Last DP export: 12/08/19 5:49 p Patient Name: GINI TORRES Page 19581 at 0927 All edits/amendments must be made on the electronic document DICTATION DATE: 12/09/19926 LAW FIRM CONSULTANT: JEAN 12/09/19926 RPT#: [id number] DC DATE: STATUS: ADM IN [facility] [address] [place] [address] END OF REPORT
--- NOTE | 2019-12-09 09:34 | MORECARE ---
CASE MANAGEMENT DISCHARGE SUMMARY PATIENT: GINI TORRES UNIT: [id number] ADM DATE: 12/07/19 AGE: 79 : 41 SEX: F ROOM/BED: D.1213 AUTHOR: CLAUDIA IQBAL PHYSICIAN: REFERRING PHYSICIAN: JUVENAL KC DO DATE OF SERVICE: 12/09/19 Discharge Plan Patient Name: GINI TORRES Facility: [facility]:[place] : 1940 Planned Disposition: Outpatient PT\OT Anticipated Discharge Date: 12/09/19 Discharge Date: Expected LOS: 2 Initial Reviewer: [email or web address] Initial Review Date: 12/07/2019 Generated: 12/09/19 10:34 am Comments DCP- Discharge Planning Updated by [email or web address]: Rober Briones on 12/09/19 8:[address] Patient Name: GINI TORRES Encounter No: [id number] : 1940 Primary Insurance: MEDICARE A & B Anticipated DC Date: 12-09-2019 Planned Disposition: Outpatient PT\OT External Planned Provider: : DCP follow-up note: Phone call to [facility] ([phone]) spoke to Rajeev. Rajeev stated that therapy could start tomorrow provided that an updated order for therapy was received as well as MRI results and Post surgical notes. Will fax requested documents and call back for confirmation. CM will continue to follow and will assist as needed with dc plans/needs. Rober Briones DCP- Discharge Planning Updated by [email or web address]: Isabela Ozuna on 12/08/19 5:[address] CM met with patient for DC planning. Patient is in agreement to same. PCP: Dr. Yancey. Pharmacy: [facility]. DME: raised toilet seat, BSC, built in shower bench, rollator walker. An upright walker is to be delivered to patient prior to DC. Denies having any stairs upon entry. Emergency contact: Quang Torres (spouse) [phone]. Patient's phone # [phone]. CM discussed HHS, OP Therapy, SNF, Rehab. Patient would like to use [facility], [address]. [facility] [phone]. CM will arrange therapy 12/08. Patient voices no other needs at this time. Coverage Notice Reviewer: [id number] Bharti Ozuna Notice Issued Date-Time: 12/08/2019 18:47 Notice Type: Patient Choice Letter Notice Delivered To: Patient Relationship to Patient: Self Asset Recovery Specialist Name: Gini Torres Delivery Method: HAND - Hand Delivered Miguelina Days: Prior Verbal Notification: Recipient Understood Notice: Yes Recipient Signature: Yes Med Rec Note Co-signed by Attending: Coverage Notice Comment: [facility] #[phone] Last DP export: 12/09/19 8:27 a Patient Name: GINI TORRES Page [phone] at 0934 All edits/amendments must be made on the electronic document DICTATION DATE: 12/09/19933 COMPANY CONTROLLER: JEAN 12/09/19933 RPT#: [id number] DC DATE: STATUS: ADM IN [facility] [address] [place] [address] END OF REPORT
--- NOTE | 2019-12-09 09:45 | NUR ---
PT RESTING IN BED. RESP EVEN AND UNLABORED. REPORTS PAIN 7/10 AT THIS TIME. PAIN MEDICATION TO BE ADMINISTERED PER MD ORDERS. DENIES FURTHER NEEDS AT THIS TIME. CL WITHIN REACH. ENCOURAGED TO CALL WITH NEEDS.
--- NOTE | 2019-12-09 10:43 | MORECARE ---
CASE MANAGEMENT DISCHARGE SUMMARY PATIENT: GINI TORRES UNIT: [id number] ADM DATE: 12/07/19 AGE: 79 : 41 SEX: F ROOM/BED: D.1213 AUTHOR: CLAUDIA IQBAL PHYSICIAN: REFERRING PHYSICIAN: JUVENAL KC DO DATE OF SERVICE: 12/09/19 Discharge Plan Patient Name: GINI TORRES Facility: [facility]:[place] : 1940 Planned Disposition: Outpatient PT\OT Anticipated Discharge Date: 12/09/19 Discharge Date: Expected LOS: 2 Initial Reviewer: [id number] Initial Review Date: 12/07/2019 Generated: 12/09/19 11:43 am Comments DCP- Discharge Planning Updated by [email or web address]: Rober Briones on 12/09/19 9:[address] Patient Name: GINI TORRES Encounter No: [id number] : 1940 Primary Insurance: MEDICARE A & B Anticipated DC Date: 12-09-2019 Planned Disposition: Outpatient PT\OT External Planned Provider: : DCP follow-up note: Phone call to Rajeev at [facility] ([phone]). Informed Rajeev that MRI documentation is not available and to confirm receipt of documentation. Rajeev stated that documentation has not arrived yet but if more is needed she would contact this CM. OP Therapy order faxed. Copy given to patient and placed in chart for DC. CM will continue to follow and will assist as needed with dc plans/needs. Rober Briones DCP- Discharge Planning Updated by [email or web address]: Rober Briones on 12/09/19 8:[address] Patient Name: GINI TORRES Encounter No: [id number] : 1940 Primary Insurance: MEDICARE A & B Anticipated DC Date: 12-09-2019 Planned Disposition: Outpatient PT\OT External Planned Provider: : DCP follow-up note: Phone call to [facility] ([phone]) spoke to Rajeev. Rajeev stated that therapy could start tomorrow provided that an updated order for therapy was received as well as MRI results and Post surgical notes. Will fax requested documents and call back for confirmation. CM will continue to follow and will assist as needed with dc plans/needs. Rober Briones DCP- Discharge Planning Updated by [email or web address]: Isabela Ozuna on 12/08/19 5:[address] CM met with patient for DC planning. Patient is in agreement to same. PCP: Dr. Yancey. Pharmacy: [facility]. DME: raised toilet seat, BSC, built in shower bench, rollator walker. An upright walker is to be delivered to patient prior to DC. Denies having any stairs upon entry. Emergency contact: Quang Torres (spouse) [phone]. Patient's phone # [phone]. CM discussed HHS, OP Therapy, SNF, Rehab. Patient would like to use [facility], [address]. [facility] [phone]. CM will arrange therapy 12/08. Patient voices no other needs at this time. Coverage Notice Reviewer: [id number] - Isabela Ozuna Notice Issued Date-Time: 12/08/2019 18:47 Notice Type: Patient Choice Letter Notice Delivered To: Patient Relationship to Patient: Self Rn Delivery Name: Gini Torres Delivery Method: HAND - Hand Delivered Miguelina Days: Prior Verbal Notification: Recipient Understood Notice: Yes Recipient Signature: Yes Med Rec Note Co-signed by Attending: Coverage Notice Comment: [facility] #[phone] Last DP export: 12/09/19 8:34 a Patient Name: GINI TORRES Page [id number] at 1043 All edits/amendments must be made on the electronic document DICTATION DATE: 12/09/19 1043 WET AND DRY SUGAR BIN OPERATOR: JEAN 12/09/19 1043 RPT#: [id number] DC DATE: STATUS: ADM IN [facility] [address] [place] [address] END OF REPORT
--- NOTE | 2019-12-09 10:57 | MORECARE ---
CASE MANAGEMENT DISCHARGE SUMMARY PATIENT: GINI TORRES UNIT: [id number] ADM DATE: 12/07/19 AGE: 79 : 41 SEX: F ROOM/BED: D.1213 AUTHOR: CLAUDIA IQBAL PHYSICIAN: REFERRING PHYSICIAN: JUVENAL KC DO DATE OF SERVICE: 12/09/19 Discharge Plan Patient Name: GINI TORRES Facility: [facility]:[place] : 1940 Planned Disposition: Outpatient PT\OT Anticipated Discharge Date: 12/09/19 Discharge Date: Expected LOS: 2 Initial Reviewer: [id number] Initial Review Date: 12/07/2019 Generated: 12/09/19 11:57 am Comments DCP- Discharge Planning Updated by [email or web address]: Rober Briones on 12/09/19 9:[address] DC IMM delivered, explained, signed by the patient, and placed in chart. Signed form also left with the patient. DCP- Discharge Planning Updated by [email or web address]: Rober Briones on 12/09/19 9:[address] Patient Name: GINI TORRES Encounter No: [id number] : 1940 Primary Insurance: MEDICARE A & B Anticipated DC Date: 12-09-2019 Planned Disposition: Outpatient PT\OT External Planned Provider: : DCP follow-up note: Phone call to Rajeev at [facility] ([phone]). Informed Rajeev that MRI documentation is not available and to confirm receipt of documentation. Rajeev stated that documentation has not arrived yet but if more is needed she would contact this CM. OP Therapy order faxed. Copy given to patient and placed in chart for DC. CM will continue to follow and will assist as needed with dc plans/needs. Rober Briones DCP- Discharge Planning Updated by [email or web address]: Rober Briones on 12/09/19 8:[address] Patient Name: GINI TORRES Encounter No: [id number] : 1940 Primary Insurance: MEDICARE A & B Anticipated DC Date: 12-09-2019 Planned Disposition: Outpatient PT\OT External Planned Provider: : DCP follow-up note: Phone call to [facility] ([phone]) spoke to Rajeev. Floridalmakell stated that therapy could start tomorrow provided that an updated order for therapy was received as well as MRI results and Post surgical notes. Will fax requested documents and call back for confirmation. CM will continue to follow and will assist as needed with dc plans/needs. Rober Briones DCP- Discharge Planning Updated by [email or web address]: Isabela Ozuna on 12/08/19 5:[address] CM met with patient for DC planning. Patient is in agreement to same. PCP: Dr. Yancey. Pharmacy: [facility]. DME: raised toilet seat, BSC, built in shower bench, rollator walker. An upright walker is to be delivered to patient prior to DC. Denies having any stairs upon entry. Emergency contact: Quang Torres (spouse) [phone]. Patient's phone # [phone]. CM discussed HHS, OP Therapy, SNF, Rehab. Patient would like to use [facility], [address]. [facility] [phone]. CM will arrange therapy 12/08. Patient voices no other needs at this time. Coverage Notice Reviewer: [id number] - Isabela Ozuna Notice Issued Date-Time: 12/08/2019 18:47 Notice Type: Patient Choice Letter Notice Delivered To: Patient Relationship to Patient: Self Filling Hauler Name: Gini Torres Delivery Method: HAND - Hand Delivered Miguelina Days: Prior Verbal Notification: Recipient Understood Notice: Yes Recipient Signature: Yes Med Rec Note Co-signed by Attending: Coverage Notice Comment: [facility] #[phone] Reviewer: [id number] - Rober Briones Notice Issued Date-Time: 12/09/2019 10:45 Notice Type: IM Discharge Notice Notice Delivered To: Patient Relationship to Patient: Self Filling Hauler Name: Delivery Method: HAND - Hand Delivered Miguelina Days: Prior Verbal Notification: Recipient Understood Notice: Yes Recipient Signature: Yes Med Rec Note Co-signed by Attending: Coverage Notice Comment: DC IMM delivered, explained, signed by the patient, and placed in chart. Signed form also left with the patient. Last DP export: 12/09/19 9:43 a Patient Name: GINI TORRES Page [id number] at 1057 All edits/amendments must be made on the electronic document DICTATION DATE: 12/09/191056 AUTO BODY REPAIR TEACHER: JEAN 12/09/191056 RPT#: [id number] DC DATE: STATUS: ADM IN [facility] [address] [place] [address] END OF REPORT
--- NOTE | 2019-12-09 11:20 | NUR ---
DISCHARGE INSTRUCTION GIVEN FOR DISCHARGE. DISCUSSED AT LENGTH NEW PRESCRIPTIONS, INCLUDING ELIQUIS AND NEED FOR MEDICATION. PT VOICES UNDERSTANDING. DISCUSSED CONTINUATION OF HOME MEDICATIONS, EXCLUDING BACTRIM DS. PT VOICES UNDERSTANDING. IV DISCONTINUED FROM RIGHT FOREARM, CATH INTAC. PT DENIES QUESTIONS OR CONCERNS AT THIS TIME. AWAITING FAMILY FOR D/C
--- NOTE | 2019-12-09 12:14 | MORECARE ---
CASE MANAGEMENT DISCHARGE SUMMARY PATIENT: GINI TORRES UNIT: [id number] ADM DATE: 12/07/19 AGE: 79 : 41 SEX: F ROOM/BED: D.1213 AUTHOR: CLAUDIA IQBAL PHYSICIAN: REFERRING PHYSICIAN: JUVENAL KC DO DATE OF SERVICE: 12/09/19 Discharge Plan Patient Name: GINI TORRES Facility: [facility]:[place] : 1940 Planned Disposition: Outpatient PT\OT Anticipated Discharge Date: 12/09/19 Discharge Date: Expected LOS: 2 Initial Reviewer: [email or web address] Initial Review Date: 12/07/2019 Generated: 12/09/19 1:14 pm Comments DCP- Discharge Planning Updated by [email or web address]: Rober Briones on 12/09/19 9:[address] DC IMM delivered, explained, signed by the patient, and placed in chart. Signed form also left with the patient. DCP- Discharge Planning Updated by [id number]: Rober Briones on 12/09/19 9:[address] Patient Name: GINI TORRES Encounter No: [id number] : 1940 Primary Insurance: MEDICARE A & B Anticipated DC Date: 12-09-2019 Planned Disposition: Outpatient PT\OT External Planned Provider: : DCP follow-up note: Phone call to Rajeev at [facility] ([phone]). Informed Rajeev that MRI documentation is not available and to confirm receipt of documentation. Rajeev stated that documentation has not arrived yet but if more is needed she would contact this CM. OP Therapy order faxed. Copy given to patient and placed in chart for DC. CM will continue to follow and will assist as needed with dc plans/needs. Rober Briones DCP- Discharge Planning Updated by [email or web address]: Rober Briones on 12/09/19 8:[address] Patient Name: GINI TORRES Encounter No: [id number] : 1940 Primary Insurance: MEDICARE A & B Anticipated DC Date: 12-09-2019 Planned Disposition: Outpatient PT\OT External Planned Provider: : DCP follow-up note: Phone call to [facility] ([phone]) spoke to Rajeev. Rajeev stated that therapy could start tomorrow provided that an updated order for therapy was received as well as MRI results and Post surgical notes. Will fax requested documents and call back for confirmation. CM will continue to follow and will assist as needed with dc plans/needs. Rober Anali DCP- Discharge Planning Updated by [email or web address]: Isabela Ozuna on 12/08/19 5:[address] CM met with patient for DC planning. Patient is in agreement to same. PCP: Dr. Yancey. Pharmacy: [facility]. DME: raised toilet seat, BSC, built in shower bench, rollator walker. An upright walker is to be delivered to patient prior to DC. Denies having any stairs upon entry. Emergency contact: Quang Torres (spouse) [phone]. Patient's phone # [phone]. CM discussed HHS, OP Therapy, SNF, Rehab. Patient would like to use [facility], [address]. [facility] [phone]. CM will arrange therapy 12/08. Patient voices no other needs at this time. DCPIA - Discharge Planning Initial Assessment Updated by [id number]: Rober Briones on 12/09/19 12:09 pm * Is the patient Alert and Oriented? Yes * How many steps to enter\exit or inside your home? 0/0 * PCP Dr. Alejandro Yancey * Pharmacy [facility] [address] * Preadmission Environment Home with Family * ADLs Independent * Equipment Bedside Commode Elevated [place] Seat * Other Equipment n/a * List name and contact numbers for known caregivers / representatives who currently or will assist patient after discharge: Quang (spouse) - [phone] Kellie (grandson) -[phone] * Verbal permission to speak to the caregivers and representatives has been obtained from the patient. Yes * Community resources currently utilized None * Please name any agencies selected above. n/a * Additional services required to return to the preadmission environment? Yes * Can the patient safely return to the preadmission environment? Yes * Has this patient been hospitalized within the prior 30 days at any hospital? No Coverage Notice Reviewer: [id number] Bharti Ozuna Notice Issued Date-Time: 12/08/2019 18:47 Notice Type: Patient Choice Letter Notice Delivered To: Patient Relationship to Patient: Self Apparel Trimmings Sales Representative Name: Gini Torres Delivery Method: HAND - Hand Delivered Miguelina Days: Prior Verbal Notification: Recipient Understood Notice: Yes Recipient Signature: Yes Med Rec Note Co-signed by Attending: Coverage Notice Comment: [facility] #[phone] Reviewer: [id number] - Rober Briones Notice Issued Date-Time: 12/09/2019 10:45 Notice Type: IM Discharge Notice Notice Delivered To: Patient Relationship to Patient: Self Apparel Tr[employer] Sales Representative Name: Delivery Method: HAND - Hand Delivered Miguelina Days: Prior Verbal Notification: Recipient Understood Notice: Yes Recipient Signature: Yes Med Rec Note Co-signed by Attending: Coverage Notice Comment: DC IMM delivered, explained, signed by the patient, and placed in chart. Signed form also left with the patient. Last DP export: 12/09/19 9:57 a Patient Name: GINI TORRES Page 68447 at 1214 All edits/amendments must be made on the electronic document DICTATION DATE: 12/09/19 1214 DIEING OUT MACHINE OPERATOR: JEAN 12/09/19 1214 RPT#: [id number] DC DATE: STATUS: ADM IN [facility] [address] [place] [address] END OF REPORT
--- NOTE | 2019-12-09 12:20 | NUR ---
PT TAKEN OUT VIA W/C TO PRIVATE VEHICLE FOR DISCHARGE WITH FAMILY WITH ALL PERSONAL BELONGINGS.
--- NOTE | 2019-12-13 09:01 | MORECARE ---
CASE MANAGEMENT DISCHARGE SUMMARY PATIENT: GINI TORRES UNIT: [id number] ADM DATE: 12/07/19 AGE: 79 : 41 SEX: F ROOM/BED: D.1213 AUTHOR: CLAUDIA IQBAL PHYSICIAN: REFERRING PHYSICIAN: JUVENAL KC DO DATE OF SERVICE: 12/13/19 Discharge Plan Patient Name: GINI TORRES Facility: [facility]:[place] : 1940 Planned Disposition: Outpatient PT\OT Anticipated Discharge Date: 12/09/19 Discharge Date: 12/09/2019 Expected LOS: 2 Initial Reviewer: [email or web address] Initial Review Date: 12/07/2019 Generated: 12/13/19 10:01 am Comments DCP- Discharge Planning Updated by [email or web address]: Rober Briones on 12/09/19 9:[address] DC IMM delivered, explained, signed by the patient, and placed in chart. Signed form also left with the patient. DCP- Discharge Planning Updated by [email or web address]: Rober Briones on 12/09/19 9:[address] Patient Name: GINI TORRES Encounter No: [id number] : 1940 Primary Insurance: MEDICARE A & B Anticipated DC Date: 12-09-2019 Planned Disposition: Outpatient PT\OT External Planned Provider: : DCP follow-up note: Phone call to Rajeev at [facility] ([phone]). Informed Rajeev that MRI documentation is not available and to confirm receipt of documentation. Rajeev stated that documentation has not arrived yet but if more is needed she would contact this CM. OP Therapy order faxed. Copy given to patient and placed in chart for DC. CM will continue to follow and will assist as needed with dc plans/needs. Rober Briones DCP- Discharge Planning Updated by [email or web address]: Rober Briones on 12/09/19 8:[address] Patient Name: GINI TORRES Encounter No: [id number] : 1940 Primary Insurance: MEDICARE A & B Anticipated DC Date: 12-09-2019 Planned Disposition: Outpatient PT\OT External Planned Provider: : DCP follow-up note: [facility] ([phone]) spoke to Rajeev. Rajeev stated that therapy could start tomorrow provided that an updated order for therapy was received as well as MRI results and Post surgical notes. Will fax requested documents and call back for confirmation. CM will continue to follow and will assist as needed with dc plans/needs. Rober Adamsnes DCP- Discharge Planning Updated by [email or web address]: Isabela Bejaranolroy on 12/08/19 5:[address] CM met with patient for DC planning. Patient is in agreement to same. PCP: Dr. Yancey. Pharmacy: [facility]. DME: raised toilet seat, BSC, built in shower bench, rollator walker. An upright walker is to be delivered to patient prior to DC. Denies having any stairs upon entry. Emergency contact: Quang Torres (spouse) [phone]. Patient's phone # [phone]. CM discussed HHS, OP Therapy, SNF, Rehab. Patient would like to use [facility], [address] [facility] [phone]. CM will arrange therapy 12/08. Patient voices no other needs at this time. DCPIA - Discharge Planning Initial Assessment Updated by [email or web address]: Roberluther Adamsnes on 12/09/19 12:09 pm * Is the patient Alert and Oriented? Yes * How many steps to enter\exit or inside your home? 0/0 * PCP Dr. Alejandro Yancey * Pharmacy [facility] [address] * Preadmission Environment Home with Family * ADLs Independent * Equipment Bedside Commode Elevated [place] Seat * Other Equipment n/a * List name and contact numbers for known caregivers / representatives who currently or will assist patient after discharge: Quang (spouse) - [phone] Kellie (grandson) -[phone] * Verbal permission to speak to the caregivers and representatives has been obtained from the patient. Yes * Community resources currently utilized None * Please name any agencies selected above. n/a * Additional services required to return to the preadmission environment? Yes * Can the patient safely return to the preadmission environment? Yes * Has this patient been hospitalized within the prior 30 days at any hospital? No Coverage Notice Reviewer: [email or web address] Bharti Ozuna Notice Issued Date-Time: 12/08/2019 18:47 Notice Type: Patient Choice Letter Notice Delivered To: Patient Relationship to Patient: Self [employer] Worker Name: Gini Torres Delivery Method: HAND - Hand Delivered Miguelina Days: Prior Verbal Notification: Recipient Understood Notice: Yes Recipient Signature: Yes Med Rec Note Co-signed by Attending: Coverage Notice Comment: [facility] #[phone] Reviewer: [id number] - Rober Briones Notice Issued Date-Time: 12/09/2019 10:45 Notice Type: IM Discharge Notice Notice Delivered To: Patient Relationship to Patient: Self [employer] Worker Name: Delivery Method: HAND - Hand Delivered Miguelina Days: Prior Verbal Notification: Recipient Understood Notice: Yes Recipient Signature: Yes Med Rec Note Co-signed by Attending: Coverage Notice Comment: DC IMM delivered, explained, signed by the patient, and placed in chart. Signed form also left with the patient. Last DP export: 12/09/19 11:14 a Patient Name: GINI TORRES Page 30738 at 0901 All edits/amendments must be made on the electronic document DICTATION DATE: 12/13/19900 NUCLEAR WORKER TECHNICIAN: JEAN 12/13/19900 RPT#: [id number] DC DATE:12/09/19 STATUS: DIS IN [facility] [address] [place] [address] END OF REPORT
== END 2019-12-09 13:03 | disposition home or self-care (01) | DRG 470 ==
LOC: D.SDCHOLD 12-01 10:00 → D.M3 12-07 07:55 → D.SDCHOLD 12-07 07:55 → D.M3 12-07 11:59 → D.SDCHOLD 12-07 13:30 → D.M3 12-09 13:03
PROVIDERS: Family Medicine; ADMIT Orthopaedic Surgery; ATTEND Orthopaedic Surgery
PROC: 0SRB0JZ Replacement of Left Hip Joint with Synthetic Substitute, Open Approach (ICD-10-PCS; principal; 2019-12-07 10:00)
DX: M16.12 Unilateral primary osteoarthritis, left hip (principal); E87.1 Hypo-osmolality and hyponatremia; I10 Essential (primary) hypertension; F41.8 Other specified anxiety disorders; G43.909 Migraine, unspecified, not intractable, without status migrainosus; Z72.89 Other problems related to lifestyle

== ENCOUNTER → 2019-11-24 19:51 | Outpatient (CLI) | payer MEDICARE, OTHER ==
[2017-02-18 12:23] VITALS: BMI 23.0
[~2019-11-24 19:51] MED LIST changes: +DESERYL100 MG PO; -TRAZODONE HCL150 MG PO
== END | disposition home or self-care (01) ==
LOC: D.LABREF 19:51
PROVIDERS: ATTEND Orthopaedic Surgery
DX: M16.12 Unilateral primary osteoarthritis, left hip (principal)

== ENCOUNTER 2020-05-02 07:20 | Inpatient (IN) | payer MEDICARE, OTHER ==
[2020-04-28 12:51] LABS: BASOPHILS 0.6 % (0-2); EOSINOPHILS 2.6 % (0-7); HEMATOCRIT 43.6 % (36.0-48.0); HEMOGLOBIN 14.6 g/dL (12-16); IMMATURE GRANULOCYTES 0.3 % (0-5); LYMPHOCYTE ABS# 2.07 10x3/uL (1.18-3.74); LYMPHOCYTES 29.8 % (15-50); MCH 34.8 pg (26.0-34.0); MCHC 33.5 g/dL (31.0-37.0); MCV 103.8 fL (80.0-100.0); MEAN PLATELET VOLUME 9.4 fL (7.4-10.4); MONOCYTES 9.9 % (2-11); NEUTROPHIL ABS# 3.95 10x3/uL (1.56-6.13); NEUTROPHILS 56.8 % (40-80); PLATELET COUNT 287 10x3/uL (130-400)
[2020-04-28 12:54] LABS: BILIRUBIN NEGATIVE (NEGATIVE); KETONE NEGATIVE (NEGATIVE); NITRITE NEGATIVE (NEGATIVE); UROBILINOGEN NORMAL mg/dL (< 2)
[2020-04-28 13:08] LABS: C-REACTIVE PROTEIN < 0.2 mg/dL (0.0-0.9); CALC OSMOLALITY 275 mosm/kg (275-300); CALCIUM 10.1 mg/dL (8.5-10.1); CARBON DIOXIDE 31.7 mmol/L (21.0-32.0); CHLORIDE - SERUM 100 mmol/L (98-107); CREATININE - SERUM 0.7 mg/dL (0.6-1.3); GLUCOSE 93 mg/dL (74-106); POTASSIUM - SERUM 4.2 mmol/L (3.5-5.1); SODIUM 137 mmol/L (136-145); UREA NITROGEN 19 mg/dL (7-18); eGFR NON AFRICAN AMERICAN 86 mL/min (90-120)
[2020-04-28 13:09] LABS: APTT 26.7 SECONDS (22.8-39.4); INR 0.97 (0.85-1.17); PROTIME 11.9 SECONDS (11.6-15.0)
[~2020-05-02] VITALS: Ht 160 cm; Wt 63.6 kg
[~2020-05-02 07:20] MED LIST changes: +ACETAMINOPHEN500 M1 PO; +AVAPRO150 MG PO; +BACTRIM DS TAB1 EAC1 PO; +BIOCELL COLLAGEN PO; +CENTRUM SILVER1 EAC3 PO; +CITRACAL + D E1 EACH PO; -DESERYL100 MG PO; +ELIQUIS2.5 MG PO; +GINKGO BILOBA120 MG PO; +HYDROCODON-ACE1 EA10 PO; +KEFLEX500 MG PO; +LUMIGAN 0.01%2.5 ML EACH EYE; +MUPIROCIN22 GM TOPICAL; +PROBIOTIC1 EAC1 PO; +TRAZODONE HCL150 MG PO; +VIBERZI PO; +VIBRAMYCIN 100100 MG PO; +VITAMIN B-121000 MCG PO; +VITAMIN C WITH ZINC PO; +VITAMIN D10000 UNIT PO; +ZOFRAN ODT4 MG/UDTAB PO
[2020-05-02 07:45] VITALS: BMI 24.8
--- NOTE | 2020-05-02 11:43 | NUR ---
CAUTERY PAD PLACED ON RIGHT THIGH. PLASMA BLADE USED ON SETTING 6/8. AQUAMANTYS USED ON SETTING 170. CAUTERY PAD LOT #[id number] EXP. 10/31/2021
[2020-05-02 14:31] VITALS: BP 113/68
[2020-05-02 14:44] VITALS: BP 114/58
[2020-05-02 16:00] VITALS: BP 114/58
[2020-05-02 20:23] VITALS: BP 138/67
--- NOTE | 2020-05-02 20:45 | NUR ---
Assumed care of pt after rounds/report. Pt is A&OX4 and spouse is present at bedside. Pt c/o nausea and was offered Zofran per PRN order. IV infusing per order. In bed resting at this time. Requests eye drops with ABX around 2229.
[2020-05-03] VITALS: BP 130/91
[2020-05-03 03:51] VITALS: BP 127/60
--- NOTE | 2020-05-03 06:31 | NUR ---
Pt is resting in bed with IV infusing per order. Utilized bed umanzor multiple times with clear yellow urine. Pain meds PRN given and good results achieved. Pt does verbalize that a 4-5/10 is an acceptable level for pain. Dr. Marques was in to visit with her this am.
[2020-05-03 08:00] VITALS: BP 132/57
[2020-05-03 09:12] LABS: BASOPHILS 0.1 % (0-2); EOSINOPHILS 0.3 % (0-7); HEMATOCRIT 36.9 % (36.0-48.0); HEMOGLOBIN 12.2 g/dL (12-16); IMMATURE GRANULOCYTES 0.3 % (0-5); LYMPHOCYTE ABS# 1.54 10x3/uL (1.18-3.74); MCH 33.9 pg (26.0-34.0); MCHC 33.1 g/dL (31.0-37.0); MCV 102.5 fL (80.0-100.0); MEAN PLATELET VOLUME 9.3 fL (7.4-10.4); MONOCYTES 5.2 % (2-11); NEUTROPHIL ABS# 5.37 10x3/uL (1.56-6.13); NEUTROPHILS 73.1 % (40-80); PLATELET COUNT 328 10x3/uL (130-400); RDW 12.1 % (11.5-14.5); WBC 7.3 10x3/uL (4.8-10.8)
--- NOTE | 2020-05-03 09:22 | OP ---
PATIENT NAME: GINI TORRES MEDICAL RECORD: [id number] :[birth year] LOCATION:D. D.1205 ADMISSION DATE:05/02/20 SURGEON: CHEVY KC DO DATE OF OPERATION: 05/02/2020 PROCEDURE PERFORMED: Revision left total hip with poly exchange, scar tissue excision, and psoas release. PREOPERATIVE DIAGNOSIS: Left hip pain, status post left total hip and adhesions POSTOPERATIVE DIAGNOSIS: Left hip pain, status post left total hip and adhesions. INDICATIONS: Ms. Torres is a 79-year-old female who underwent left total hip 5 months ago. She had a seroma developed about a month after the total hip, I did an I and D on that in January. She said since she had had pain when she goes a walk and the groin kind of goes down where the stem of the femur is. She had been trying all manner of nonoperative treatment for this including physical therapy, but she had got to the point where she needed to walk with a walker. She also does have lumbar spine issue which has complicated the picture. However, she was convinced it was her hip and the way she described it sounded like loosening of the stem, said she kept walking and once she stood up, she would be okay to go and could walk. I informed her that it did not look loose on x-ray; however, her symptoms were compatible with that of a loose stem in the femur. I told her we are going to look, and if they were loose, I will take it out and exchange it; if not I release the psoas and some of the scar tissue that had developed and the adhesions. She was okay with that and she is aware of the increased risk of infection, bleeding, damage to nerves or vessels in the area, continued pain, loosening of any prosthesis, blood clots, failure of any prosthesis and and she signed the consent. SURGEON: Chevy Kc DO The patient was taken to the operative suite, laid in supine position, given general anesthetic and intubated. She was given a gram of Ancef, 80 mg gentamicin, and a gram of TXA. She was positioned on the Warren table and the left hip was then prepped and draped in sterile fashion. A timeout was performed and everyone was in agreeance with the correct side, site, patient and procedure. I then made an incision over the old wound. I made careful dissection down to the hip prosthesis and there was an extreme amount of scar tissue in the area surrounding the capsule, the psoas, and the prosthesis in fact went to dislocate the hip and could not do to the amount of adhesions there. I then released all of them and we dislocated the hip. I popped the head off and attempted to remove the stem. This to no avail, I used vice hand meat salter with impactor and the stem was not loose whatsoever. I also used small osteotomes to loosen it up and it was not loose at all. I could not get the stem out. I then at that point knew the stem was not loose. I cleared around the cup as well and removed more of the adhesions as part of the capsule and after irrigating thoroughly impacted a -3 neck with a new poly on same as last she had before, reduced the hip. It was in good position. No fracture seen. There was a part of bone removed in the femur due to the exposure to the stem, although it was not loose. There were no fractures seen in the femur. The stem again was very stable as well as the cup. I did check it as well. The acetabular cup, I tried to see if it were loose, but it was not either and nor was a shell liner on it. After removing all the adhesions and scar tissue, I OPERATIVE REPORT [id number] GINI TORRES then irrigated with 10% povidine-iodine and 500 mL of normal saline solution and release the psoas off the lesser trochanter partially as it was very tight as well. I then irrigated with over a liter of normal saline. Christopher Jenkins, cisco certified network associate put in put in Jose Maria and vancomycin and tobramycin powder, closed the tensor fascia darien fascia with #1 Vicryl in a [id number]-jq-exypd fashion. A running locking stitch and the skin with 2-0 Vicryl in interrupted fashion, 4-0 Monocryl ran on the skin and Prineo glue wound the skin. She was then dressed with Telfa and Tegaderm. Awakened and taken to recovery given a gram of TXA in stable condition. Blood loss was approximately 200 mL. COMPLICATIONS: None. TRANSINT:[id number] Voice Confirmation ID: [id number] DOCUMENT ID: [id number] CHEVY KC, DO at 0922 CC: [id number] DICTATION DATE: 05/02/20 1257 CENTRIFUGE SEPARATOR TENDER: 05/02/202010 ADM IN [facility] [address] [place] [id number]
[2020-05-03 09:30] LABS: ALBUMIN 3.1 g/dL (3.4-5.0); ANION GAP 13.3 mmol/L (8-16); BILIRUBIN - TOTAL 0.44 mg/dL (0.2-1.3); CALCIUM 8.5 mg/dL (8.5-10.1); CARBON DIOXIDE 26.5 mmol/L (21.0-32.0); MAGNESIUM - SERUM 1.9 mg/dL (1.8-2.4); PHOSPHOROUS 3.5 mg/dL (2.5-4.9); POTASSIUM - SERUM 3.8 mmol/L (3.5-5.1); PROTEIN - SERUM 5.8 g/dL (6.4-8.2)
--- NOTE | 2020-05-03 10:00 | NUR ---
AMBULATED IN HALLWAY WITH PT. DID WELL WITH RW.
[2020-05-03 12:08] VITALS: BP 104/57
[2020-05-03 12:54] VITALS: Ht 160 cm; Wt 63.6 kg
--- NOTE | 2020-05-03 15:37 | NUR ---
PT IN BED RESTING
[2020-05-03 16:00] VITALS: BP 103/59
--- NOTE | 2020-05-03 20:00 | NUR ---
ALERT RESTING IN BED DENIES PAIN OR NEEDS AT THIS TIME, SEE SHIFT ASSESSMENT CALL LIGHT IN REACH
[2020-05-03 20:25] VITALS: BP 110/59
[2020-05-04 04:30] VITALS: BP 112/64
[2020-05-04 07:47] VITALS: BP 144/63
[2020-05-04 07:49] LABS: BASOPHILS 0.3 % (0-2); EOSINOPHILS 1.9 % (0-7); HEMATOCRIT 33.5 % (36.0-48.0); HEMOGLOBIN 10.9 g/dL (12-16); IMMATURE GRANULOCYTES 0.3 % (0-5); LYMPHOCYTE ABS# 2.02 10x3/uL (1.18-3.74); LYMPHOCYTES 31.4 % (15-50); MCHC 32.5 g/dL (31.0-37.0); MCV 104.4 fL (80.0-100.0); MEAN PLATELET VOLUME 9.2 fL (7.4-10.4); MONOCYTES 13.1 % (2-11); NEUTROPHIL ABS# 3.41 10x3/uL (1.56-6.13); PLATELET COUNT 290 10x3/uL (130-400); RBC 3.21 10x6/uL (4.00-5.40); RDW 12.3 % (11.5-14.5); WBC 6.4 10x3/uL (4.8-10.8)
[2020-05-04] MEDS ORDERED: ELIQUIS2.5 MG PO (08:13)
[2020-05-04] MEDS ORDERED: HYDROCODON-ACE1 EA10 PO (08:13)
[2020-05-04 08:33] LABS: ALBUMIN 2.7 g/dL (3.4-5.0); ALKALINE PHOSPHATASE 53 U/L (30-120); ALT (SGPT) 23 U/L (10-68); BILIRUBIN - TOTAL 0.34 mg/dL (0.2-1.3); CALCIUM 7.9 mg/dL (8.5-10.1); CARBON DIOXIDE 28.9 mmol/L (21.0-32.0); CHLORIDE - SERUM 104 mmol/L (98-107); GLUCOSE 93 mg/dL (74-106); MAGNESIUM - SERUM 2.1 mg/dL (1.8-2.4); PHOSPHOROUS 3.4 mg/dL (2.5-4.9); POTASSIUM - SERUM 3.9 mmol/L (3.5-5.1); PROTEIN - SERUM 5.3 g/dL (6.4-8.2); SODIUM 139 mmol/L (136-145)
[2020-05-04 08:50] LABS: CALC OSMOLALITY 279 mosm/kg (275-300); CREATININE - SERUM 0.7 mg/dL (0.6-1.3); UREA NITROGEN 17 mg/dL (7-18); eGFR NON AFRICAN AMERICAN 86 mL/min (90-120)
--- NOTE | 2020-05-04 10:12 | MORECARE ---
CASE MANAGEMENT DISCHARGE SUMMARY PATIENT: GINI TORRES UNIT: [id number] ADM DATE: 05/02/20 AGE: 79 : 41 SEX: F ROOM/BED: D.[facility]5 AUTHOR: CLAUDIA IQBAL PHYSICIAN: REFERRING PHYSICIAN: JUVENAL KC DO DATE OF SERVICE: 05/04/20 Discharge Plan Patient Name: GINI TORRES [facility] [facility] 1940 Planned Disposition: Home or Self Care Anticipated Discharge Date: Discharge Date: Expected LOS: Initial Reviewer: [email or web address] Initial Review Date: 05/02/2020 Generated: 05/04/20 11:12 am Patient Name: GINI TORRES Page 14755 at 1012 All edits/amendments must be made on the electronic document DICTATION DATE: 05/04/20 1012 SEWER PIPE CLEANER: JEAN 05/04/20 1012 RPT#: [id number] DC DATE: STATUS: ADM IN [facility] [address] [place] [address] END OF REPORT
--- NOTE | 2020-05-04 10:21 | MORECARE ---
CASE MANAGEMENT DISCHARGE SUMMARY PATIENT: GINI TORRES UNIT: [id number] ADM DATE: 05/02/20 AGE: 79 : 41 SEX: F ROOM/BED: D.1205 AUTHOR: CLAUDIA IQBAL PHYSICIAN: REFERRING PHYSICIAN: JUVENAL KC DO DATE OF SERVICE: 05/04/20 Discharge Plan Patient Name: GINI TORRES Facility: [facility]:[place] : 1940 Planned Disposition: Home or Self Care Anticipated Discharge Date: Discharge Date: Expected LOS: Initial Reviewer: [email or web address] Initial Review Date: 05/02/2020 Generated: 05/04/20 11:21 am Comments DCP- Discharge Planning Updated by [email or web address]: Vero Walker on 05/04/20 9:[address] PATIENT HAS BEEN GIVEN A COPY OF HER OP PT ORDER AND I FAXED A COPY TO [facility] WITH TOMORROWS DCP- Discharge Planning Updated by [email or web address]: Vero Walker on 05/04/20 9:[address] Patient Name: GINI TORRES Admission Status: Elective Accout number: [id number] Admission Date: 05-02-2020 : 1940 Admission Diagnosis:PAIN DUE TO INTERNAL ORTHOPEDIC PROSTH DEV/GRFT, INIT Attending: JUVENAL KC Current LOS: 2 Anticipated DC Date: Planned Disposition: Home or Self Care Primary Insurance: MEDICARE A & B Discharge Planning Comments: CM met with patient to complete initial dc planning assessment. CM educated patient on the CM role and verbal consent given by patient to complete assessment. Patient lives at home with her spouse where she states she is independent with her care. At discharge patient plans to return home and feels this is a safe discharge. CM discussed availability of home health, rehab services, and medical equipment. She has a walker and a BSC at home. Her will be her flag car driver home. She will [facility]. Patient denied known discharge needs at this time. CM will continue to follow and will assist as needed with dc plans/needs Program Counselor: Vero Walker DCPIA - Discharge Planning Initial Assessment Updated by [email or web address]: Vero Walker on 05/04/20 10:13 am * Is the patient Alert and Oriented? Yes * How many steps to enter\exit or inside your home? * PCP ANT * Pharmacy [facility] IN [place] * Preadmission Environment Home with Family * ADLs Independent * Equipment Bedside Commode Rolling Walker * List name and contact numbers for known caregivers / representatives who currently or will assist patient after discharge: CAROLYN ( SPOUSE) [phone] * Verbal permission to speak to the caregivers and representatives has been obtained from the patient. N/A * Community resources currently utilized None * Additional services required to return to the preadmission environment? Yes * Can the patient safely return to the preadmission environment? Yes * Has this patient been hospitalized within the prior 30 days at any hospital? No Last DP export: 05/04/20 9:12 am Patient Name: GINI TORRES Page 41478 at 1021 All edits/amendments must be made on the electronic document DICTATION DATE: 05/04/20 1021 POPCORN ATTENDANT: JENA 05/04/20 1021 RPT#: [id number] DC DATE: STATUS: ADM IN [facility] [address] [place] [address] END OF REPORT
--- NOTE | 2020-05-04 10:29 | MORECARE ---
CASE MANAGEMENT DISCHARGE SUMMARY PATIENT: GINI TORRES UNIT: [id number] ADM DATE: 05/02/20 AGE: 79 : 41 SEX: F ROOM/BED: D.1205 AUTHOR: CLAUDIA IQBAL PHYSICIAN: REFERRING PHYSICIAN: JUVENAL KC DO DATE OF SERVICE: 05/04/20 Discharge Plan Patient Name: GINI TORRES Facility: [facility]:[place] : 1940 Planned Disposition: Home or Self Care Anticipated Discharge Date: Discharge Date: Expected LOS: Initial Reviewer: [email or web address] Initial Review Date: 05/02/2020 Generated: 05/04/20 11:28 am Comments DCP- Discharge Planning Updated by [email or web address]: Vero Walker on 05/04/20 9:[address] PATIENT HAS BEEN GIVEN A COPY OF HER OP PT ORDER AND I FAXED A COPY TO [facility] WITH TOMORROWS DCP- Discharge Planning Updated by [email or web address]: Vero Walker on 05/04/20 9:[address] Patient Name: GINI TORRES Admission Status: Elective Accout number: [id number] Admission Date: 05-02-2020 : 1940 Admission Diagnosis:PAIN DUE TO INTERNAL ORTHOPEDIC PROSTH DEV/GRFT, INIT Attending: JUVENAL KC Current LOS: 2 Anticipated DC Date: Planned Disposition: Home or Self Care Primary Insurance: MEDICARE A & B Discharge Planning Comments: CM met with patient to complete initial dc planning assessment. CM educated patient on the CM role and verbal consent given by patient to complete assessment. Patient lives at home with her spouse where she states she is independent with her care. At discharge patient plans to return home and feels this is a safe discharge. CM discussed availability of home health, rehab services, and medical equipment. She has a walker and a BSC at home. Her will be her otr hazmat company driver home. She will have [facility] PT [facility] 12[facility]30 on [facility]/08. Patient denied known discharge needs at this time. CM will continue to follow and will assist as needed with dc plans/needs Lime Slaker: Vero Walker DCPIA - Discharge Planning Initial Assessment Updated by [email or web address]: Vero Walker on 05/04/20 10:13 am * Is the patient Alert and Oriented? Yes * How many steps to enter\exit or inside your home? * PCP ANT * Pharmacy [facility] IN [place] * Preadmission Environment Home with Family * ADLs Independent * Equipment Bedside Commode Rolling Walker * List name and contact numbers for known caregivers / representatives who currently or will assist patient after discharge: CAROLYN ( SPOUSE) [phone] * Verbal permission to speak to the caregivers and representatives has been obtained from the patient. N/A * Community resources currently utilized None * Additional services required to return to the preadmission environment? Yes * Can the patient safely return to the preadmission environment? Yes * Has this patient been hospitalized within the prior 30 days at any hospital? No External Providers External Provider: [facility] Next Contact Date: Service Request Date: Service Type: Resolution: Reviewer: Comments: Last DP export: 05/04/20 9:21 am Patient Name: GINI TORRES Page 92722 at 1029 All edits/amendments must be made on the electronic document DICTATION DATE: 05/04/20 1029 COMMUNICATIONS AND SIGNALS SUPERVISOR: JEAN 05/04/20 1029 RPT#: [id number] DC DATE: STATUS: ADM IN [facility] [address] [place] [address] END OF REPORT
--- NOTE | 2020-05-04 10:56 | NUR ---
Discharge instruction reviewed with pt, paper copy provided, pt verbalized understanding, personal belongings gathered, IV removed, tip intact, dressing to L hip changed, pt tolerated well, pt was taken out via wheelchair to personal vehicle driven by , no signs of distress noted.
--- NOTE | 2020-05-04 14:43 | MORECARE ---
CASE MANAGEMENT DISCHARGE SUMMARY PATIENT: GINI TORRES UNIT: [id number] ADM DATE: 05/02/20 AGE: 79 : 41 SEX: F ROOM/BED: D.1205 AUTHOR: FARIDA,CLAUDIA PHYSICIAN: REFERRING PHYSICIAN: JUVENAL KC DO DATE OF SERVICE: 05/04/20 Discharge Plan Patient Name: GINI TORRES Facility: [facility]:[place] : 1940 Planned Disposition: Home or Self Care Anticipated Discharge Date: Discharge Date: 05/04/2020 Expected LOS: Initial Reviewer: [email or web address] Initial Review Date: 05/02/2020 Generated: 05/04/20 3:43 pm Comments DCP- Discharge Planning Updated by [email or web address]: Vero Walker on 05/04/20 9:[address] PATIENT HAS BEEN GIVEN A COPY OF HER OP PT ORDER AND I FAXED A COPY TO [facility] WITH TOMORROWS DCP- Discharge Planning Updated by [email or web address]: Vero Walker on 05/04/20 9:[address] Patient Name: GINI TORRES Admission Status: Elective Accout number: [id number] Admission Date: 05-02-2020 : 1940 Admission Diagnosis:PAIN DUE TO INTERNAL ORTHOPEDIC PROSTH DEV/GRFT, INIT Attending: JUVENAL KC Current LOS: 2 Anticipated DC Date: Planned Disposition: Home or Self Care Primary Insurance: MEDICARE A & B Discharge Planning Comments: CM met with patient to complete initial dc planning assessment. CM educated patient on the CM role and verbal consent given by patient to complete assessment. Patient lives at home with her spouse where she states she is independent with her care. At discharge patient plans to return home and feels this is a safe discharge. CM discussed availability of home health, rehab services, and medical equipment. She has a walker and a BSC at home. Her will be her driver medic home. She will have OP PT [facility] at 12:30 on 05/08. Patient denied known discharge needs at this time. CM will continue to follow and will assist as needed with dc plans/needs Claims Administrator: Vero Walker DCPIA - Discharge Planning Initial Assessment Updated by [email or web address]: Vero Walker on 05/04/20 10:13 am * Is the patient Alert and Oriented? Yes * How many steps to enter\exit or inside your home? * PCP ANT * Pharmacy [facility] IN [place] * Preadmission Environment Home with Family * ADLs Independent * Equipment Bedside Commode Rolling Walker * List name and contact numbers for known caregivers / representatives who currently or will assist patient after discharge: CAROLYN ( SPOUSE) [phone] * Verbal permission to speak to the caregivers and representatives has been obtained from the patient. N/A * Community resources currently utilized None * Additional services required to return to the preadmission environment? Yes * Can the patient safely return to the preadmission environment? Yes * Has this patient been hospitalized within the prior 30 days at any hospital? No Last DP export: 05/04/20 9:29 am Patient Name: GINI TORRES Page 03569 at 1443 All edits/amendments must be made on the electronic document DICTATION DATE: 05/04/201442 INFORMATION SUPPORT PROJECT MANAGER: JEAN 05/04/20 144 RPT#: [id number] DC DATE:05/04/20 STATUS: DIS IN [facility] [address] [place] [address] END OF REPORT
== END 2020-05-04 10:55 | disposition home or self-care (01) | DRG 468 ==
LOC: D.OPS 07:20 → D.M3 07:21 → D.OPS 09:15 → D.M3 14:06 → D.OPS 16:47 → D.M3 16:47
PROVIDERS: Family Medicine; ADMIT Orthopaedic Surgery; ATTEND Orthopaedic Surgery
PROC: 0SPB0JZ Removal of Synthetic Substitute from Left Hip Joint, Open Approach (ICD-10-PCS; 2020-05-02)
PROC: 0SRB0JZ Replacement of Left Hip Joint with Synthetic Substitute, Open Approach (ICD-10-PCS; principal; 2020-05-02 09:30)
DX: T84.84XA Pain due to internal orthopedic prosthetic devices, implants and grafts, initial encounter (principal); Y83.9 Surgical procedure, unspecified as the cause of abnormal reaction of the patient, or of later complication, without mention of misadventure at the time of the procedure; M24.652 Ankylosis, left hip; I10 Essential (primary) hypertension; G43.909 Migraine, unspecified, not intractable, without status migrainosus; H40.9 Unspecified glaucoma; K58.9 Irritable bowel syndrome, unspecified; F41.9 Anxiety disorder, unspecified; F32.9 Major depressive disorder, single episode, unspecified; K44.9 Diaphragmatic hernia without obstruction or gangrene; Z85.3 Personal history of malignant neoplasm of breast

== ENCOUNTER 2020-06-10 15:20 | Emergency (ER) | payer MEDICARE, OTHER ==
[~2020-06-10] VITALS: Ht 160 cm; Wt 63.6 kg
[2020-06-10 15:24] VITALS: BP 123/68; Ht 160 cm; Wt 63.6 kg
[2020-06-10 15:43] LABS: BASOPHILS 0 % (0-2); EOSINOPHILS 0.7 % (0-7); HEMATOCRIT 46.1 % (36.0-48.0); HEMOGLOBIN 15.8 g/dL (12-16); IMMATURE GRANULOCYTES 0.4 % (0-5); LYMPHOCYTE ABS# 0.32 10x3/uL (1.18-3.74); LYMPHOCYTES 4.4 % (15-50); MCHC 34.3 g/dL (31.0-37.0); MCV 102.2 fL (80.0-100.0); MEAN PLATELET VOLUME 9.8 fL (7.4-10.4); NEUTROPHIL ABS# 6.65 10x3/uL (1.56-6.13); NEUTROPHILS 90.5 % (40-80); PLATELET COUNT 334 10x3/uL (130-400); RBC 4.51 10x6/uL (4.00-5.40); RDW 12.3 % (11.5-14.5); WBC 7.3 10x3/uL (4.8-10.8)
[2020-06-10 15:51] LABS: APTT 28.9 SECONDS (22.8-39.4); CALC OSMOLALITY 278 mosm/kg (275-300); CALCIUM 9.8 mg/dL (8.5-10.1); CARBON DIOXIDE 22.8 mmol/L (21.0-32.0); CHLORIDE - SERUM 101 mmol/L (98-107); CREATININE - SERUM 1.1 mg/dL (0.6-1.3); INR 1.05 (0.85-1.17); POTASSIUM - SERUM 3.7 mmol/L (3.5-5.1); PROTIME 12.7 SECONDS (11.6-15.0); SODIUM 135 mmol/L (136-145); UREA NITROGEN 29 mg/dL (7-18); eGFR NON AFRICAN AMERICAN 51 mL/min (90-120)
[2020-06-10 15:52] LABS: GLUCOSE 147 mg/dL (74-106)
[2020-06-10 16:06] LABS: ALBUMIN 3.7 g/dL (3.4-5.0); ALKALINE PHOSPHATASE 71 U/L (30-120); ALT (SGPT) 25 U/L (10-68); AMYLASE - SERUM 87 U/L (25-115); BILIRUBIN - TOTAL 0.62 mg/dL (0.2-1.3); CKMB 0.3 U/L (0.0-3.6); CREATINE KINASE 31 UL (21-215); LIPASE 159 U/L (73-393); MAGNESIUM - SERUM 1.7 mg/dL (1.8-2.4); PROTEIN - SERUM 7.5 g/dL (6.4-8.2)
[2020-06-10 16:13] LABS: TROPONIN-I < 0.017 ng/mL (0.000-0.060)
[2020-06-10 18:14] LABS: INFLUENZA TYPE A NEGATIVE (NEGATIVE); INFLUENZA TYPE B NEGATIVE (NEGATIVE); SARS-CoV-2 ANTIGEN NEGATIVE- SARS-COV-2 (NEGATIVE)
[2020-06-10] MEDS ORDERED: ZOFRAN ODT4 MG/UDTAB PO (19:09)
== END 2020-06-10 20:15 | disposition home or self-care (01) ==
LOC: D.ER 15:20
PROVIDERS: Family Medicine
DX: K52.9 Noninfective gastroenteritis and colitis, unspecified (principal); R11.2 Nausea with vomiting, unspecified; I10 Essential (primary) hypertension

== ENCOUNTER → 2020-06-19 18:11 | Outpatient (CLI) | payer MEDICARE, OTHER ==
[2020-06-10 15:24] VITALS: BMI 24.8
[2020-06-19 19:11] LABS: BASOPHILS 0.5 % (0-2); EOSINOPHILS 2.2 % (0-7); HEMATOCRIT 44.1 % (36.0-48.0); HEMOGLOBIN 14.5 g/dL (12-16); IMMATURE GRANULOCYTES 3.6 % (0-5); LYMPHOCYTE ABS# 2.49 10x3/uL (1.18-3.74); LYMPHOCYTES 29.5 % (15-50); MCH 34.9 pg (26.0-34.0); MCHC 32.9 g/dL (31.0-37.0); MEAN PLATELET VOLUME 9.8 fL (7.4-10.4); MONOCYTES 9.7 % (2-11); NEUTROPHIL ABS# 4.61 10x3/uL (1.56-6.13); NEUTROPHILS 54.5 % (40-80); RBC 4.16 10x6/uL (4.00-5.40); RDW 12.3 % (11.5-14.5); WBC 8.5 10x3/uL (4.8-10.8)
[2020-06-19 19:13] LABS: PLATELET COUNT 490 10x3/uL (130-400)
[2020-06-19 20:16] LABS: ERYTHROCYTE SEDIMENTATION RATE 7 mm/hr (0-30)
== END | disposition home or self-care (01) ==
LOC: D.LABREF 18:11
PROVIDERS: ATTEND Clinical Nurse Specialist Family Health
DX: M25.552 Pain in left hip (principal)

== ENCOUNTER → 2020-06-23 09:56 | Day surgery (SDC) | payer MEDICARE, OTHER ==
[2020-06-10 15:24] VITALS: BMI 24.8
--- NOTE | 2020-06-22 10:49 | NUR ---
CONFIRMED LEFT HIP INJECTION FOR 06/23/20 PT HAS ULTRASOUND SCHEDULED FOR 929 ALSO
== END | disposition home or self-care (01) ==
LOC: D.RAD 09:56
PROVIDERS: ATTEND Clinical Nurse Specialist Family Health
DX: M79.605 Pain in left leg (principal); M70.72 Other bursitis of hip, left hip; Z53.9 Procedure and treatment not carried out, unspecified reason

== ENCOUNTER → 2020-06-27 07:18 | Outpatient (CLI) | payer MEDICARE, OTHER ==
[2020-06-10 15:24] VITALS: BMI 24.8
== END | disposition home or self-care (01) ==
LOC: D.CT 07:18
PROVIDERS: ATTEND Clinical Nurse Specialist Family Health
DX: I73.9 Peripheral vascular disease, unspecified (principal)

== ENCOUNTER → 2020-07-04 08:11 | Outpatient (CLI) | payer MEDICARE, OTHER ==
[2020-06-10 15:24] VITALS: BMI 24.8
== END | disposition home or self-care (01) ==
LOC: D.US 08:11
PROVIDERS: ATTEND Clinical Nurse Specialist Family Health
DX: N63.20 Unspecified lump in the left breast, unspecified quadrant (principal)